=== PATIENT | male | born 1955 | race Two or more races ===

== ENCOUNTER → 2023-11-12 | Outpatient (CLI) | payer OTHER, MEDICAID ==
[2023-11-12 09:38] LABS: Urine Bacteria None Seen /hpf (None Seen)
[2023-11-12 10:09] LABS: Basophils # (auto) 0.1 10 ^3/uL (0-0.2); Eosinophils # (auto) 0.9 10 ^3/uL (0-0.8); Hematocrit 49.7 % (41.0-53.0); Hemoglobin 17.4 g/dL (13.5-17.5); Lymphocytes # (auto) 2.5 10 ^3/uL (0.4-5.4); Lymphocytes % (auto) 31.1 % (10.0-50.0); Mean Corpuscular Hemoglobin 32.4 pg (28.0-32.0); Mean Corpuscular Hgb Conc. 34.9 g/dL (32.0-36.0); Mean Corpuscular Volume 92.9 fL (80.0-100.0); Monocytes # (auto) 0.5 10 ^3/uL (0-1.3); Monocytes % (auto) 6.7 % (0.0-12.0); Neutrophils % (auto) 50.2 % (37.0-80.0); Platelet Count (auto) 212 10^3/uL (140-450); Red Blood Cells 5.35 10^6/uL (4.5-5.90); Red Cell Distribution Width 13.3 % (11.8-14.3)
[2023-11-12 10:44] LABS: Urine Blood Negative /uL (Negative); Urine Clarity Clear (Clear); Urine Color Light-Yellow (Yellow); Urine Protein, UAD Negative (Negative); Urine Specific Gravity 1.019 (1.001-1.035); Urine Urobilinogen Normal (Negative); Urine WBC <1 /hpf (0 - 3)
[2023-11-12 11:04] LABS: Alanine Aminotransferase 17 U/L (7-40); Albumin 4.6 g/dL (3.2-4.8); Alkaline Phosphatase 90 U/L (46-116); Anion Gap 5 (5-15); Aspartate Aminotransferase 15 U/L (13-40); BUN/Creatinine Ratio 13.6 (10.0-20.0); Blood Urea Nitrogen 11 mg/dL (9-23); Carbon Dioxide 29 mmol/L (20-30); Chloride 105 mmol/L (98-107); Cholesterol 221 mg/dL (< 200); Glucose 128 mg/dL (74-106); HDL Cholesterol 45 mg/dL (40-59); LDL Cholesterol 153 mg/dL (< 100); Potassium 4.5 mmol/L (3.5-5.1); Sodium 139 mmol/L (136-145); Triglycerides 115 mg/dL (< 150)
[2023-11-12 11:05] LABS: Bilirubin, Total 1.1 mg/dL (0.2-1.0); Total Protein 7.5 g/dL (5.7-8.2)
== END | disposition home or self-care (01) ==
LOC: LAB 09:29
PROVIDERS: ATTEND Internal Medicine
DX: Z00.01 Encounter for general adult medical examination with abnormal findings (principal); Z29.9 Encounter for prophylactic measures, unspecified; J45.20 Mild intermittent asthma, uncomplicated; E78.5 Hyperlipidemia, unspecified; E11.9 Type 2 diabetes mellitus without complications
CPT/HCPCS: 36415; 80053; 80061; 81001; 83036; 84439; 84443; 85025

== ENCOUNTER → 2023-12-26 | Outpatient (CLI) | payer OTHER, MEDICAID ==
[2023-12-26 09:09] LABS: Alanine Aminotransferase 16 U/L (7-40); Albumin 4.4 g/dL (3.2-4.8); Alkaline Phosphatase 90 U/L (46-116); Anion Gap 8 (5-15); Aspartate Aminotransferase 13 U/L (13-40); BUN/Creatinine Ratio 10.7 (10.0-20.0); Blood Urea Nitrogen 8 mg/dL (9-23); Calcium 9.7 mg/dL (8.7-10.4); Carbon Dioxide 28 mmol/L (20-31); Chloride 106 mmol/L (98-107); Glucose 135 mg/dL (74-106); Potassium 3.8 mmol/L (3.5-5.1); Sodium 142 mmol/L (136-145)
[2023-12-26 09:10] LABS: Total Protein 7.3 g/dL (5.7-8.2)
[2023-12-26 09:22] LABS: Creatinine, Urine 101.37 mg/dL (30.0-125.0)
== END | disposition home or self-care (01) ==
LOC: LAB 08:21
PROVIDERS: ATTEND Internal Medicine
DX: E11.69 Type 2 diabetes mellitus with other specified complication (principal)
CPT/HCPCS: 36415; 80053; 82043; 82570

== ENCOUNTER 2024-05-10 10:45 | Inpatient (IN) | payer OTHER, MEDICAID ==
[~2024-05-10] VITALS: Ht 175.3 cm; Wt 97.4 kg
[2024-05-10 10:50] VITALS: RESP 20
--- NOTE | 2024-05-10 11:16 | ED.PDOC ---
SOB-HPI HPI Comments This is a 69-year-old male who comes in with chief complaint of shortness for breath since last night. The patient was had a cough with some hemoptysis. Patient also states that he is having some chest tightness with his cough. All the symptoms started on . He does have a history of asthma. It was unknown if he took an inhaler or any other medications for his shortness a breath. He was able to ambulate into the emergency department's without significant difficulty. Chief Complaint: Shortness of Breath Time Seen by MD: 10:50 Primary Care Provider: none Reviewed notes: Nurses Notes, Medications, Allergies (No allergies to medications) Information Source: Patient Mode of Arrival: Ambulatory Severity: Moderate Timing: Days Duration: Since onset Context: At Rest PE Risk Factors: None History of: Asthma Prehospital treatment: None Modifying Factors: Nothing Associated Signs and Symptoms: Wheeze, Cough, Chest Pain Quality: Tightness If cough with SOB: Non-Productive Past Medical History PAST MEDICAL HISTORY: Arthritis, High Lipids Surgical History (Other): Bilateral knee surgery Family History Family History: Unknown Social History Smoker: Non-Smoker Alcohol: Occasionally Drugs: Denies Drug Use Lives In: Home Constitutional: denies: chills, diaphoresis, fatigue, fever, malaise, sweats, weakness, others EENTM: denies: blurred vision, double vision, ear bleeding, ear discharge, ear drainage, ear pain, ear ringing, eye pain, eye redness, hearing loss, mouth pain, mouth swelling, nasal discharge, nose bleeding, nose congestion, nose pain, photophobia, tearing, throat pain, throat swelling, voice changes, others Respiratory: reports: cough, shortness of breath, wheezing; denies: hemoptysis, orthopnea, SOB at rest, SOB with excertion, stridor, others Cardiovascular: reports: chest pain; denies: dizzy spells, diaphoresis, Dyspnea on exertion, edema, irregular heart beat, left arm pain, lightheadedness, palpitations, PND, syncope, others Gastrointestinal: denies: abdomen distended, abdominal pain, blood streaked bowels, constipated, diarrhea, dysphagia, difficulty swallowing, hematemesis, melena, nausea, poor appetite, poor fluid intake, rectal bleeding, rectal pain, vomiting, others Genitourinary: denies: burning, dysuria, flank pain, frequency, hematuria, incontinence, penile discharge, penile sore, pain, testicle pain, testicle swelling, urgency, others Neurological: denies: dizziness, fainting, headache, left sided numbness, left sided weakness, numbness, paresthesia, pre-existing deficit, right sided numbness, right sided weakness, seizure, speech problems, tingling, tremors, weakness, others Musculoskeletal: denies: back pain, gout, joint pain, joint swelling, muscle pain, muscle stiffness, neck pain, others Integumetry: denies: bruises, change in color, change in hair/nails, dryness, laceration, lesions, lumps, rash, wounds, others Allergic/Immunocompromised: denies: Difficulty Healing, Frequent Infections, Hives, Itching, others Hematologic/Lymphatic: denies: anemia, blood clots, easy bleeding, easy bruising, swollen glands, others Endocrine: denies: excessive hunger, excessive sweating, excessive thirst, excessive urination, flushing, intolerance to cold, intolerance to heat, unexplained weight gain, unexplained weight loss, others Psychiatric: denies: anxiety, bipolar disorder, depression, hopeless, panic disorder, schizophrenia, sleepless, suicidal, others Physical Exam General Appearance: Moderate Distress HEENT: Normal ENT Inspection, Pharynx Normal, TMs Normal Neck: Full Range of Motion, Non-Tender, Normal, Normal Inspection Respiratory: Chest Non-Tender, Decreased Breath Sounds, No Accessory Muscle Use, Respiratory Distress, Wheezing Cardiovascular: No Edema, No JVD, No Murmur, No Gallop, Normal Peripheral Pulses, Regular Rate/Rhythm Breast Exam: Deferred Gastrointestinal: No Organomegaly, Non Tender, No Pulsatile Mass, Normal Bowel Sounds, Soft Genitalia: Deferred Pelvic: Deferred Rectal: Deferred Extremities: No calf tenderness, Normal capillary refill, Normal inspection, Normal range of motion, Non-tender, No pedal edema Musculoskeletal : Apperance: Normal Neurologic: Alert, 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 Was a procedure done?: No Differential Dx Differential Diagnosis: Asthma, Bronchitis, CHF, COPD, Pneumonia X-Ray, Labs, Meds, VS Vital Signs Date Time Temp Pulse Resp B/P (MAP) Pulse Ox O2 Delivery O2 Flow Rate FiO2 05/10/24 12:02 18 95 Room Air* 0 21 05/10/24 10:57 99.3 95 16 166/93 (117) 96 99.3 05/10/24 10:57 19 96 Room Air* 0 21 05/10/24 10:50 20 Room Air* 0 21 Lab Test 05/10/24 11:20 Range/Units White Blood Count 8.4 4.4-10.8 10^3/uL Red Blood Count 5.07 4.5-5.90 10^6/uL Hemoglobin 16.0 13.5-17.5 g/dL Hematocrit 46.5 41.0-53.0 % Mean Corpuscular Volume 91.8 80.0-100.0 fL Mean Corpuscular Hemoglobin 31.5 28.0-32.0 pg Mean Corpuscular Hemoglobin Concent 34.3 32.0-36.0 g/dL Red Cell Distribution Width 13.0 11.8-14.3 % Platelet Count 305 140-450 10^3/uL Mean Platelet Volume 7.4 6.9-10.8 fL Neutrophils (%) (Auto) 65.4 37.0-80.0 % Lymphocytes (%) (Auto) 19.6 10.0-50.0 % Monocytes (%) (Auto) 6.7 0.0-12.0 % Eosinophils (%) (Auto) 7.3 H 0.0-7.0 % Basophils (%) (Auto) 1.0 0.0-2.0 % Neutrophils # (Auto) 5.5 1.6-8.6 10 ^3/uL Lymphocytes # (Auto) 1.6 0.4-5.4 10 ^3/uL Monocytes # (Auto) 0.6 0-1.3 10 ^3/uL Eosinophils # (Auto) 0.6 0-0.8 10 ^3/uL Basophils # (Auto) 0.1 0-0.2 10 ^3/uL Nucleated Red Blood Cells 0.2 % Sodium Level 140 136-145 mmol/L Potassium Level 3.8 3.5-5.1 mmol/L Chloride Level 106 98-107 mmol/L Carbon Dioxide Level 26 20-31 mmol/L Anion Gap 8 5-15 Blood Urea Nitrogen 10 9-23 mg/dL Creatinine 0.76 0.700-1.30 mg/dL Glomerular Filtration Rate Calc 99 >90 mL/min BUN/Creatinine Ratio 13.2 10.0-20.0 Serum Glucose 116 H 74-106 mg/dL Calcium Level 9.8 8.7-10.4 mg/dL Current Medications Medications (Trade) Dose Ordered Sig/Martinez Route Start Time Stop Time Status Last Admin Methylprednisolone Sodium Succinate (Solu Medrol) 125 mg ONCE ONCE IV 05/10/24 11:00 05/10/24 11:01 DC 05/10/24 11:46 Ipratropium [place] (Atrovent Medneb) [address] [facility] 05/10/24 11:00 05/10/24 11:01 DC 05/10/24 12:01 Albuterol (Ventolin Medneb) [address] [facility] 05/10/24 11:00 05/10/24 11:01 DC 05/10/24 12:02 Chest x-ray shows:EXAM: XY CHEST TWO VIEWS ROUTINE IMPRESSION: Diffuse interstitial opacities in the right lung suggestive of atypical infection or pulmonary edema. The patient was placed on a continuous breathing treatment albuterol and Atrovent. The patient was given Solu-Medrol 125 mg IV push The patient had a CBC and chemistry panel which is within normal limits. The patient did have some mild improvement The patient was still be admitted with a diagnosis of asthma exacerbation Images Reviewed?: Images reviewed and evaluated by me Time of 1ST Reevaluation: 11:15 Reevaluation 1ST: Improved Patient Education/Counseling: Diagnosis, Treatment, Prognosis Family Education/Counseling: No Family Present Departure 1 Departure Time of Disposition: 13:57 Impression: Primary Impression: Exacerbation of asthma Qualified Codes: J45.41 - Moderate persistent asthma with (acute) exacerbation Additional Impression: Shortness of breath Disposition: ADMITTED INPATIENT Admit to: [facility] Condition: Fair Critical Care Note Critical Care Time?: Yes (45 min-critical care time only) Stability Stability form required: Yes Unstable for transfer: Telemetry monitoring (Telemetry monitoring required), ED Physician Assesment (Clinical assesment) Heart Score Heart Score: Heart Score Response (Comments) Value History N/A 0 EKG N/A 0 Age N/A 0 Risk Factors N/A 0 Troponin N/A 0 Total 0 I personally scribed for NOY TREJO MD ([email or web address]) on 05/10/24 at 12:19. Electronically submitted by Dede Brasher ([facility]). NOY TREJO MD May 10, 2024 11:16
--- NOTE | 2024-05-10 11:20 | DVH ---
EXAM: XY CHEST TWO VIEWS ROUTINE CLINICAL HISTORY: sob COMPARISON: None TECHNIQUE: Frontal and lateral view of the chest was obtained FINDINGS: Lines and Tubes: None Lungs: Diffuse interstitial opacities in the right lung. Pleura: No effusion. No pneumothorax. Cardiomediastinal contours: Unremarkable Bones: No acute osseous abnormality. IMPRESSION: Diffuse interstitial opacities in the right lung suggestive of atypical infection or pulmonary edema.
[2024-05-10] MEDS: methylPREDNISolone SOD SUCC 125 MG/2 ML VL IV ONE (11:46)
[2024-05-10 11:53] LABS: Basophils # (auto) 0.1 10 ^3/uL (0-0.2); Eosinophils # (auto) 0.6 10 ^3/uL (0-0.8); Eosinophils % (auto) 7.3 % (0.0-7.0); Hematocrit 46.5 % (41.0-53.0); Lymphocytes # (auto) 1.6 10 ^3/uL (0.4-5.4); Lymphocytes % (auto) 19.6 % (10.0-50.0); Mean Corpuscular Hemoglobin 31.5 pg (28.0-32.0); Mean Corpuscular Hgb Conc. 34.3 g/dL (32.0-36.0); Mean Corpuscular Volume 91.8 fL (80.0-100.0); Monocytes # (auto) 0.6 10 ^3/uL (0-1.3); Monocytes % (auto) 6.7 % (0.0-12.0); Neutrophils # (auto) 5.5 10 ^3/uL (1.6-8.6); Neutrophils % (auto) 65.4 % (37.0-80.0); Nucleated Red Blood Cells % 0.2 %; Platelet Count (auto) 305 10^3/uL (140-450); Red Blood Cells 5.07 10^6/uL (4.5-5.90); White Blood Cell 8.4 10^3/uL (4.4-10.8)
[2024-05-10 11:59] LABS: Chloride 106 mmol/L (98-107); Potassium 3.8 mmol/L (3.5-5.1); Sodium 140 mmol/L (136-145)
[2024-05-10 12:00] LABS: Anion Gap 8 (5-15); Calcium 9.8 mg/dL (8.7-10.4); Carbon Dioxide 26 mmol/L (20-31)
[2024-05-10] MEDS: IPRATROPIUM BROM 0.5 MG/2.5ML INH SOL HHN ONE (12:01)
[2024-05-10] MEDS: ALBUTEROL SULF 2.5 MG/0.5ML(0.5%) NEB SOLN HHN ONE (12:02)
[2024-05-10 12:05] LABS: Glucose 116 mg/dL (74-106)
[2024-05-10 12:26] LABS: BUN/Creatinine Ratio 13.2 (10.0-20.0); Blood Urea Nitrogen 10 mg/dL (9-23)
[2024-05-10] MEDS ORDERED: ACETAMINOPHEN 325 MG TAB PO PRN (16:00)
[2024-05-10] MEDS ORDERED: ONDANSETRON HCL 4 MG/2 ML VIAL IV PRN (16:00)
[2024-05-10] MEDS ORDERED: HYDROcodone-ACET 5/325MG TAB PO PRN (16:00)
--- NOTE | 2024-05-10 16:01 | DVHHP2 ---
Admitting Diagnosis: Shortness of breaths History of Present Illness This is a 69-year-old male who comes in with chief complaint of shortness for breath since last night. The patient was had a cough with some hemoptysis. Patient also states that he is having some chest tightness with his cough. All the symptoms started on . He does have a history of asthma. It was unknown if he took an inhaler or any other medications for his shortness a breath. He was able to ambulate into the emergency department's without significant difficulty. Past Medical History PAST MEDICAL HISTORY: Arthritis, High Lipids Surgical History (Other): Bilateral knee surgery Family History Family History: Unknown Social History Smoker: Non-Smoker Alcohol: Occasionally Drugs: Denies Drug Use Lives In: Home Allergies: Coded Allergies: NO KNOWN ALLERGIES (Unverified , 05/10/24) Vital Signs Vital Signs Date Time Temp Pulse Resp B/P (MAP) Pulse Ox O2 Delivery O2 Flow Rate FiO2 05/10/24 12:02 18 95 Room Air* 0 21 05/10/24 10:57 99.3 95 166/93 (117) 99.3 Physical Exam Generally 69 years old male, overweight, sitting on chair. Mild distress HEENT-atraumatic normocephalic Heart-regular rate and rhythm Lungs bilateral wheezing Abdomen soft nontender nondistended nondistended Musculoskeletal-no edema cyanosis Neuro-AO x3, no focal deficits Results Labs Test 05/10/24 11:20 Range/Units White Blood Count 8.4 4.4-10.8 10^3/uL Red Blood Count 5.07 4.5-5.90 10^6/uL Hemoglobin 16.0 13.5-17.5 g/dL Hematocrit 46.5 41.0-53.0 % Mean Corpuscular Volume 91.8 80.0-100.0 fL Mean Corpuscular Hemoglobin 31.5 28.0-32.0 pg Mean Corpuscular Hemoglobin Concent 34.3 32.0-36.0 g/dL Red Cell Distribution Width 13.0 11.8-14.3 % Platelet Count 305 140-450 10^3/uL Mean Platelet Volume 7.4 6.9-10.8 fL Neutrophils (%) (Auto) 65.4 37.0-80.0 % Lymphocytes (%) (Auto) 19.6 10.0-50.0 % Monocytes (%) (Auto) 6.7 0.0-12.0 % Eosinophils (%) (Auto) 7.3 H 0.0-7.0 % Basophils (%) (Auto) 1.0 0.0-2.0 % Neutrophils # (Auto) 5.5 1.6-8.6 10 ^3/uL Lymphocytes # (Auto) 1.6 0.4-5.4 10 ^3/uL Monocytes # (Auto) 0.6 0-1.3 10 ^3/uL Eosinophils # (Auto) 0.6 0-0.8 10 ^3/uL Basophils # (Auto) 0.1 0-0.2 10 ^3/uL Nucleated Red Blood Cells 0.2 % Sodium Level 140 136-145 mmol/L Potassium Level 3.8 3.5-5.1 mmol/L Chloride Level 106 98-107 mmol/L Carbon Dioxide Level 26 20-31 mmol/L Anion Gap 8 5-15 Blood Urea Nitrogen 10 9-23 mg/dL Creatinine 0.76 0.700-1.30 mg/dL Glomerular Filtration Rate Calc 99 >90 mL/min BUN/Creatinine Ratio 13.2 10.0-20.0 Serum Glucose 116 H 74-106 mg/dL Calcium Level 9.8 8.7-10.4 mg/dL Primary Diagnosis Acute asthma exacerbation Plan Solu-Medrol 25 mg IV in ED Continue Solu-Medrol 60 mg q.6 Albuterol and ipratropium nebulizer q.6 Oxygen saturation goal greater than 92% Monitor for wheezing Monitor respiratory status Bowel regimen Antiemetic Diet Lovenox for DVT prophylaxis PPI for GI prophylaxis Cardiac diet Plan discussed with: Patient Problems List: (1) Shortness of breath Status: Acute (2) Exacerbation of asthma Status: Acute Date of Service: May 10, 2024 Billing Provider: CASTILLO ORTIZ MD Common Visit Codes: [id number] INP/OBS CARE (MOD) CASTILLO ORTIZ MD May 10, 2024 16:01
[2024-05-10 16:34] VITALS: BP 166/93; PULSE 95; RESP 18; TEMP 99.3; O2SAT 95
[2024-05-10 18:50] VITALS: PULSE 95; PULSE 98; RESP 20; O2SAT 95; O2SAT 99
[2024-05-10] MEDS: IPRATROPIUM BROM 0.5 MG/2.5ML INH SOL NEB SCH (20:38)
[2024-05-10] MEDS: ALBUTEROL SULF 2.5 MG/0.5ML(0.5%) NEB SOLN NEB SCH (20:39)
[2024-05-10] MEDS: SODIUM CHLOR 0.9% PF (SALINE LOCK) 10ML VIAL/SYR IV SCH (21:58)
[2024-05-10] MEDS: methylPREDNISolone SOD SUCC 125 MG/2 ML VL IV SCH (23:57)
[2024-05-11] VITALS (18 sets, daily range): BP systolic 102–144; BP diastolic 53–86; PULSE 72–99; RESP 14–20; TEMP 97.4–97.9; O2SAT 91–100
[2024-05-11] MEDS ORDERED: ALB5IS NEB (03:59)
[2024-05-11] MEDS: DOCUSATE SOD 100 MG CAP PO PRN (05:39)
[2024-05-11 06:19] LABS: Basophils # (auto) 0 10 ^3/uL (0-0.2); Basophils % (auto) 0.1 % (0.0-2.0); Eosinophils # (auto) 0 10 ^3/uL (0-0.8); Hematocrit 43.6 % (41.0-53.0); Hemoglobin 14.7 g/dL (13.5-17.5); Lymphocytes # (auto) 0.7 10 ^3/uL (0.4-5.4); Lymphocytes % (auto) 7.7 % (10.0-50.0); Mean Corpuscular Hemoglobin 30.6 pg (28.0-32.0); Mean Corpuscular Hgb Conc. 33.7 g/dL (32.0-36.0); Mean Corpuscular Volume 90.8 fL (80.0-100.0); Monocytes # (auto) 0.1 10 ^3/uL (0-1.3); Monocytes % (auto) 1.6 % (0.0-12.0); Neutrophils # (auto) 7.9 10 ^3/uL (1.6-8.6); Neutrophils % (auto) 90.6 % (37.0-80.0); Platelet Count (auto) 301 10^3/uL (140-450); Red Blood Cells 4.81 10^6/uL (4.5-5.90); Red Cell Distribution Width 12.5 % (11.8-14.3); White Blood Cell 8.7 10^3/uL (4.4-10.8)
[2024-05-11 06:41] LABS: Alanine Aminotransferase 24 U/L (7-40); Albumin 4.3 g/dL (3.2-4.8); Alkaline Phosphatase 85 U/L (46-116); Anion Gap 10 (5-15); BUN/Creatinine Ratio 18.6 (10.0-20.0); Bilirubin, Total 0.6 mg/dL (0.2-1.0); Blood Urea Nitrogen 13 mg/dL (9-23); Calcium 9.8 mg/dL (8.7-10.4); Carbon Dioxide 23 mmol/L (20-31); Chloride 106 mmol/L (98-107); Potassium 3.9 mmol/L (3.5-5.1); Sodium 139 mmol/L (136-145); Total Protein 7.2 g/dL (5.7-8.2)
[2024-05-11 06:46] LABS: Aspartate Aminotransferase 12 U/L (13-40); Glucose 198 mg/dL (74-106)
[2024-05-11] MEDS: ENOXAPARIN SOD 40 MG/0.4 ML SYRINGE SC SCH (09:06)
[2024-05-11] MEDS: AZITHROMYCIN 500MG/ 250ML 250 ML IV SCH (11:42)
[2024-05-11 12:03] LABS: Rapid Influenza A Negative (Negative); Rapid Influenza B Negative (Negative)
[2024-05-11 12:07] LABS: COVID19 ANTIGEN SOFIA FIA NEGATIVE (NEGATIVE)
[2024-05-11] MEDS: cefTRIAXone 1GM/50ML D5W 50 ML IV SCH (12:51)
--- NOTE | 2024-05-11 13:00 | DVHPN2 ---
Subjective Patient reports having generalized weakness and cough Reviewed: Care Plan, H&P, Labs, Medications Changes from previous H/P or p: No Changes General: Per HPI Objective Vitals Vital Signs Date Time Temp Pulse Resp B/P (MAP) Pulse Ox O2 Delivery O2 Flow Rate FiO2 05/11/24 11:49 96 20 98 05/11/24 09:00 97.8 139/64 (89) 97.8 05/11/24 08:01 Room Air* 0 21 Intake/Output Intake and Output 05/11/24 07:00 Intake Total 100 ml Balance 100 ml Intake Oral 100 ml General Appearance: Alert, Oriented X3, Cooperative, mild distress HEENT: Atraumatic, PERRLA Lungs: Clear to auscultation, Normal air movement Cardiovascular: Normal S1, Normal S2 Abdomen: Normal bowel sounds, Soft Musculoskeletal: Normal sensory function, Normal motor function Skin: Dry, Intact Psych/Mental Status: Mental status NL, Mood NL Medications Current Medications Medications Dose Ordered Sig/Martinez Route Start Time Stop Time Status Last Admin Dose Admin Albuterol 2.5 mg Q6H NEB 05/10/24 18:00 05/11/24 11:41 2.5 MG Ipratropium [place] 0.5 mg Q6H NEB 05/10/24 18:00 05/11/24 11:41 0.5 MG Sodium Chloride 10 ml Q8HR IV 05/10/24 22:00 05/11/24 05:39 10 ML Docusate Sodium 100 mg BIDPRN PRN PO 05/10/24 16:00 05/11/24 05:39 100 MG Acetaminophen 650 mg Q6HP PRN PO 05/10/24 16:00 Acetaminophen/ Hydrocodone Bitart 1 tab Q4HP PRN PO 05/10/24 16:00 Ondansetron HCl 4 mg Q4HP PRN IV 05/10/24 16:00 Enoxaparin Sodium 40 mg DAILY SC 05/11/24 10:00 Methylprednisolone Sodium Succinate 40 mg BID IV 05/11/24 22:00 Azithromycin 250 ml @ 125 mls/hr DAILY IV 05/11/24 11:00 05/11/24 11:42 125 MLS/HR Ceftriaxone Sodium 50 ml @ 100 mls/hr DAILY@09 IV 05/11/24 11:00 05/11/24 12:51 100 MLS/HR Laboratory Results Laboratory Tests 05/11/24 05:50 Chemistry Test 05/11/24 05:50 Albumin 4.3 g/dL (3.2-4.8) Calcium Level 9.8 mg/dL (8.7-10.4) Total Protein 7.2 g/dL (5.7-8.2) LFT Test 05/11/24 05:50 Alanine Aminotransferase (ALT) 24 U/L (7-40) Alkaline Phosphatase 85 U/L (46-116) Aspartate Amino Transferase (AST) 12 U/L (13-40) L Total Bilirubin 0.6 mg/dL (0.2-1.0) Labs and/or images reviewed: Labs reviewed by me, Image(s) reviewed by me Assessment/Plan Assessment/Plan Impression: -community-acquired pneumonia, probable Gram-positive/Gram-negative etiology -obesity -asthma -dyslipidemia -osteoarthritis Plan: -patient with right lower lobe pneumonia. Start antibiotic therapy with Rocephin and azithromycin -check influenza and COVID-19 swab -continue bronchodilators -decrease IV Solu-Medrol -repeat labs chest x-ray in a.m. Total time spent with patient discussing and formulating plan of care: 35 minutes. This medical document was created using an electronic medical record system with [employer] computerized dictation system. Although this document has been carefully reviewed, there may still be some phonetic and typographical errors. These areas are purely typographical due to imperfections of the software programs, and do not reflect any compromise in the patient's medical care. Plan discussed with: Patient, Other (RN) My Orders Orders - ANASTASIYA REICH NP Procedure Category Date Status Time Azithromycin 500mg/ PHA 05/11/24 In Process 250ml (Zithromax 50 11:00 Ceftriaxone 1gm/50ml PHA 05/11/24 In Process D5w (Rocephin) 11:00 Methylprednisolone PHA 05/11/24 In Process Sod Succ (Solu Medrol 22:00 Date of Service: May 11, 2024 Billing Provider: ANASTASIYA REICH NP Common Visit Codes: [id number] INP/OBS CARE(HIGH) ANASTASIYA REICH NP May 11, 2024 13:00
[2024-05-11] MEDS: methylPREDNISolone SOD SUCC 40 MG/ML VL IV SCH (21:53)
[2024-05-12] VITALS (16 sets, daily range): BP systolic 107–128; BP diastolic 69–75; PULSE 74–101; RESP 16–18; TEMP 97.9–98.8; O2SAT 93–100
[2024-05-12 05:40] LABS: Basophils # (auto) 0 10 ^3/uL (0-0.2); Basophils % (auto) 0.1 % (0.0-2.0); Eosinophils # (auto) 0 10 ^3/uL (0-0.8); Hematocrit 41.6 % (41.0-53.0); Hemoglobin 14.3 g/dL (13.5-17.5); Lymphocytes # (auto) 0.7 10 ^3/uL (0.4-5.4); Lymphocytes % (auto) 5.3 % (10.0-50.0); Mean Corpuscular Hemoglobin 31.1 pg (28.0-32.0); Mean Corpuscular Hgb Conc. 34.5 g/dL (32.0-36.0); Mean Corpuscular Volume 90.2 fL (80.0-100.0); Monocytes # (auto) 0.2 10 ^3/uL (0-1.3); Monocytes % (auto) 1.9 % (0.0-12.0); Neutrophils % (auto) 92.7 % (37.0-80.0); Platelet Count (auto) 312 10^3/uL (140-450); Red Blood Cells 4.61 10^6/uL (4.5-5.90); Red Cell Distribution Width 12.8 % (11.8-14.3)
[2024-05-12 06:04] LABS: Alanine Aminotransferase 24 U/L (7-40); Albumin 4.1 g/dL (3.2-4.8); Alkaline Phosphatase 74 U/L (46-116); Anion Gap 7 (5-15); Aspartate Aminotransferase 14 U/L (13-40); BUN/Creatinine Ratio 19.7 (10.0-20.0); Blood Urea Nitrogen 14 mg/dL (9-23); Calcium 9.5 mg/dL (8.7-10.4); Carbon Dioxide 25 mmol/L (20-31); Chloride 106 mmol/L (98-107); Potassium 4.4 mmol/L (3.5-5.1); Sodium 138 mmol/L (136-145); Total Protein 6.8 g/dL (5.7-8.2)
[2024-05-12 06:05] LABS: Bilirubin, Total 0.4 mg/dL (0.2-1.0)
[2024-05-12 06:17] LABS: Glucose 244 mg/dL (74-106)
--- NOTE | 2024-05-12 11:30 | DVHPN2 ---
Subjective Improvement with dyspnea Reviewed: Care Plan, H&P, Labs, Medications Changes from previous H/P or p: Changes General: Per HPI Objective Vitals Vital Signs Date Time Temp Pulse Resp B/P (MAP) Pulse Ox O2 Delivery O2 Flow Rate FiO2 05/12/24 09:40 98.8 101 17 107/70 (82) 95 98.8 05/12/24 08:00 Room Air* 0 21 Intake/Output Intake and Output 05/12/24 07:00 Intake Total 2400 ml Balance 2400 ml Intake Oral 2100 ml IV Total 300 ml # Voids 2 General Appearance: Alert, Oriented X3, Cooperative, mild distress HEENT: Atraumatic, PERRLA Lungs: Clear to auscultation, Normal air movement Cardiovascular: Normal S1, Normal S2 Abdomen: Normal bowel sounds, Soft Musculoskeletal: Normal sensory function, Normal motor function Skin: Dry, Intact Psych/Mental Status: Mental status NL, Mood NL Medications Current Medications Medications Dose Ordered Sig/Martinez Route Start Time Stop Time Status Last Admin Dose Admin Albuterol 2.5 mg Q6H NEB 05/10/24 18:00 05/12/24 06:45 2.5 MG Ipratropium [place] 0.5 mg Q6H NEB 05/10/24 18:00 05/12/24 06:45 0.5 MG Sodium Chloride 10 ml Q8HR IV 05/10/24 22:00 05/12/24 05:33 10 ML Docusate Sodium 100 mg BIDPRN PRN PO 05/10/24 16:00 05/11/24 21:58 100 MG Acetaminophen 650 mg Q6HP PRN PO 05/10/24 16:00 Acetaminophen/ Hydrocodone Bitart 1 tab Q4HP PRN PO 05/10/24 16:00 Ondansetron HCl 4 mg Q4HP PRN IV 05/10/24 16:00 Enoxaparin Sodium 40 mg DAILY SC 05/11/24 10:00 Azithromycin 250 ml @ 125 mls/hr DAILY IV 05/11/24 11:00 05/12/24 09:54 125 MLS/HR Ceftriaxone Sodium 50 ml @ 100 mls/hr DAILY@09 IV 05/11/24 11:00 05/12/24 09:05 100 MLS/HR Laboratory Results Laboratory Tests 05/12/24 04:32 Chemistry Test 05/12/24 04:32 Albumin 4.1 g/dL (3.2-4.8) Calcium Level 9.5 mg/dL (8.7-10.4) Total Protein 6.8 g/dL (5.7-8.2) LFT Test 05/12/24 04:32 Alanine Aminotransferase (ALT) 24 U/L (7-40) Alkaline Phosphatase 74 U/L (46-116) Aspartate Amino Transferase (AST) 14 U/L (13-40) Total Bilirubin 0.4 mg/dL (0.2-1.0) Labs and/or images reviewed: Labs reviewed by me, Image(s) reviewed by me Assessment/Plan Assessment/Plan Impression: -community-acquired pneumonia, probable Gram-positive/Gram-negative etiology -obesity -asthma -dyslipidemia -osteoarthritis Plan: Events: No events overnight. White blood cell count increasing. Chest x-ray pending today. Continues to be on room air. Patient was agreeable to continue treatment given worsening leukocytosis -influenza and COVID-19 negative -taper off steroids -continue Rocephin and azithromycin -continue bronchodilators -repeat labs chest x-ray in a.m. Total time spent with patient discussing and formulating plan of care: 35 minutes. This medical document was created using an electronic medical record system with [employer] dictation system. Although this document has been carefully reviewed, there may still be some phonetic and typographical errors. These areas are purely typographical due to imperfections of the software programs, and do not reflect any compromise in the patient's medical care. Plan discussed with: Patient, Other (rn) My Orders Orders - ANASTASIYA REICH NP Procedure Category Date Status Time Chest Xray 1 View XY 05/12/24 Logged 10:44 Chest Portable XY 05/13/24 Transmitted 04:00 Date of Service: May 12, 2024 Billing Provider: ANASTASIYA REICH NP Common Visit Codes: [id number] INP/OBS CARE(HIGH) ANASTASIYA REICH NP May 12, 2024 11:30
--- NOTE | 2024-05-12 14:33 | DVH ---
CHEST RADIOGRAPH Indication: pna Technique: Single frontal view of the chest was obtained Comparison: 05/10/2024 FINDINGS: Lines and Tubes: None Lungs: No focal consolidation. Pleura: No effusion. No pneumothorax. Cardiomediastinal contours: Unremarkable Bones: No acute osseous abnormality. IMPRESSION: 1. No acute cardiopulmonary disease. 2. No significant change from 05/10/2024
[2024-05-13] VITALS (13 sets, daily range): BP systolic 98–132; BP diastolic 66–84; PULSE 70–97; RESP 16–19; TEMP 97.4–98.4; O2SAT 81–100
[2024-05-13 06:45] LABS: Basophils # (auto) 0 10 ^3/uL (0-0.2); Basophils % (auto) 0.5 % (0.0-2.0); Eosinophils # (auto) 0.1 10 ^3/uL (0-0.8); Eosinophils % (auto) 0.6 % (0.0-7.0); Hematocrit 42.2 % (41.0-53.0); Hemoglobin 14.8 g/dL (13.5-17.5); Lymphocytes # (auto) 2.6 10 ^3/uL (0.4-5.4); Lymphocytes % (auto) 28.2 % (10.0-50.0); Mean Corpuscular Hemoglobin 31.8 pg (28.0-32.0); Monocytes # (auto) 0.6 10 ^3/uL (0-1.3); Monocytes % (auto) 6.3 % (0.0-12.0); Neutrophils # (auto) 5.9 10 ^3/uL (1.6-8.6); Neutrophils % (auto) 64.4 % (37.0-80.0); Nucleated Red Blood Cells % 0.1 %; Platelet Count (auto) 285 10^3/uL (140-450); Red Blood Cells 4.63 10^6/uL (4.5-5.90); Red Cell Distribution Width 12.6 % (11.8-14.3); White Blood Cell 9.2 10^3/uL (4.4-10.8)
--- NOTE | 2024-05-13 06:54 | DVH ---
EXAM: XR Chest, 1 View CLINICAL INDICATION: pna TECHNIQUE: Frontal view of the chest. COMPARISON: XY CHEST XRAY 1 VIEW on DOS: 05/12/24 FINDINGS: LUNGS AND PLEURAL SPACES: Unremarkable. No consolidation. No pneumothorax. HEART: Unremarkable. No cardiomegaly. MEDIASTINUM: Unremarkable. Normal mediastinal contour. BONES/JOINTS: Unremarkable. No acute fracture. OTHER FINDINGS: . None. IMPRESSION: No acute cardiopulmonary process.
[2024-05-13 07:16] LABS: Alanine Aminotransferase 27 U/L (7-40); Alkaline Phosphatase 79 U/L (46-116); Anion Gap 7 (5-15); Blood Urea Nitrogen 10 mg/dL (9-23); Calcium 9.3 mg/dL (8.7-10.4); Carbon Dioxide 28 mmol/L (20-31); Chloride 105 mmol/L (98-107); Potassium 3.6 mmol/L (3.5-5.1); Sodium 140 mmol/L (136-145); Total Protein 6.7 g/dL (5.7-8.2)
[2024-05-13 07:17] LABS: BUN/Creatinine Ratio 13.5 (10.0-20.0); Bilirubin, Total 0.5 mg/dL (0.2-1.0)
[2024-05-13 07:24] LABS: Aspartate Aminotransferase 12 U/L (13-40); Glucose 158 mg/dL (74-106)
[2024-05-13] MEDS ORDERED: CEFD300C2 PO (11:47)
--- NOTE | 2024-05-13 11:53 | DVHDS2 ---
Discharge Summary Date of Admission May 10, 2024 at 15:51 Date of Discharge: May 13, 2024 Admitting Diagnosis Acute respiratory failure, asthma exacerbation Labs/Diagnostic Data: Laboratory Results Test 05/13/24 06:18 05/11/24 11:30 White Blood Count 9.2 10^3/uL (4.4-10.8) Red Blood Count 4.63 10^6/uL (4.5-5.90) Hemoglobin 14.8 g/dL (13.5-17.5) Hematocrit 42.2 % (41.0-53.0) Mean Corpuscular Volume 91.0 fL (80.0-100.0) Mean Corpuscular Hemoglobin 31.8 pg (28.0-32.0) Mean Corpuscular Hemoglobin Concent 35.0 g/dL (32.0-36.0) Red Cell Distribution Width 12.6 % (11.8-14.3) Platelet Count 285 10^3/uL (140-450) Mean Platelet Volume 7.4 fL (6.9-10.8) Neutrophils (%) (Auto) 64.4 % (37.0-80.0) Lymphocytes (%) (Auto) 28.2 % (10.0-50.0) Monocytes (%) (Auto) 6.3 % (0.0-12.0) Eosinophils (%) (Auto) 0.6 % (0.0-7.0) Basophils (%) (Auto) 0.5 % (0.0-2.0) Neutrophils # (Auto) 5.9 10 ^3/uL (1.6-8.6) Lymphocytes # (Auto) 2.6 10 ^3/uL (0.4-5.4) Monocytes # (Auto) 0.6 10 ^3/uL (0-1.3) Eosinophils # (Auto) 0.1 10 ^3/uL (0-0.8) Basophils # (Auto) 0 10 ^3/uL (0-0.2) Nucleated Red Blood Cells 0.1 % Sodium Level 140 mmol/L (136-145) Potassium Level 3.6 mmol/L (3.5-5.1) Chloride Level 105 mmol/L (98-107) Carbon Dioxide Level 28 mmol/L (20-31) Anion Gap 7 (5-15) Blood Urea Nitrogen 10 mg/dL (9-23) Creatinine 0.74 mg/dL (0.700-1.30) Glomerular Filtration Rate Calc 99 mL/min (>90) BUN/Creatinine Ratio 13.5 (10.0-20.0) Serum Glucose 158 mg/dL (74-106) Calcium Level 9.3 mg/dL (8.7-10.4) Total Bilirubin 0.5 mg/dL (0.2-1.0) Aspartate Amino Transferase (AST) 12 U/L (13-40) Alanine Aminotransferase (ALT) 27 U/L (7-40) Alkaline Phosphatase 79 U/L (46-116) Total Protein 6.7 g/dL (5.7-8.2) Albumin 4.0 g/dL (3.2-4.8) Influenza Type A Antigen Negative (Negative) Influenza Type B Antigen Negative (Negative) SARS-CoV-2 Antigen (Rapid) Negative (NEGATIVE) Other Laboratory Tests 05/13/24 06:18 Brief Hx & Hospital Course: History of Present Illness This is a 69-year-old male who comes in with chief complaint of shortness for breath since last night. The patient was had a cough with some hemoptysis. Patient also states that he is having some chest tightness with his cough. All the symptoms started on . He does have a history of asthma. It was unknown if he took an inhaler or any other medications for his shortness a breath. He was able to ambulate into the emergency department's without significant difficulty. Course of hospitalization: Chest x-ray was reviewed with noted atypical pneumonia. Patient had COVID-19 and influenza test formed which were negative. Patient was started on antibiotic therapy with Rocephin and azithromycin. Bronchodilators and IV steroids were continued. Patient was respiratory status improved. Patient x- ray has also been reviewed which shows resolution of pneumonia. Patient will be discharged home with continue antibiotic therapy with cefdinir 300 mg p.o. b.i.d. for additional five days. He was to continue all previous home medications. Patient was also instructed to follow up with his PCP in 1-2 weeks Physical examination General: Alert and Oriented x3. No acute distress. Well-nourished. Eyes: EOMI. Anicteric. HENT: Moist mucous membranes. Lungs: Clear to auscultation bilaterally. No accessory muscle use. Cardiovascular: Regular rate and rhythm. No murmur. No JVD. Abdomen: Soft, non-tender and non-distended. No palpable masses. Extremities: No edema. Non-tender. Skin: No rashes or lesions. Warm. Neurologic: No focal neurological deficits. CN II-XII grossly intact, but not individually tested. Psychiatric: Cooperative. Appropriate mood and affect. Total time spent with patient discussing and formulating plan of care: 35 minutes. This medical document was created using an electronic medical record system with [employer] dictation system. Although this document has been carefully reviewed, there may still be some phonetic and typographical errors. These areas are purely typographical due to imperfections of the software programs, and do not reflect any compromise in the patient's medical care. Condition at Discharge: Fair Final Diagnosis/Problems List Acute respiratory failure Secondary diagnosis: -community-acquired pneumonia, probable Gram-positive/Gram-negative etiology -obesity -asthma exacerbation -dyslipidemia -osteoarthritis -constipation Discharge Disposition: Home Discharge Instruct/Medications Diet: Regular Activity: No Restrictions, As Tolerated Follow Up/Referral: Follow up with PCP in 1-2 weeks Medications: Cefdinir 300 mg p.o. b.i.d. x5 days 36 Discharge Statement: "Patient was advised to return to the ER or call 911 if any headaches, dizziness, shortness of breath, chest pain, abdominal pain, bleeding, fevers, or worsening of medical condition. Patient was counseled about treatment plan, medications, possible side effects, patientverbalized understanding. All questions were answered to the best of my ability. This discharge took greater then 30 minutes in planning, reviewing documentation, counseling the patient, and discussing with other team members." ASSESSMENT ASSESSMENT Assessment Acute respiratory failure Date of Service: May 13, 2024 Billing Provider: ANASTASIYA REICH NP Common Visit Codes: 70200-XHL/OBS DISCH DAY >30min ANASTASIYA REICH NP May 13, 2024 11:53
[2024-05-13] MEDS: LACTULOSE 20Gm/30ML SOLN PO ONE (12:09)
[2024-05-13] MEDS: METOCLOPRAMIDE HCL 5MG/ml INJ 2ml VIAL IV ONE (12:09)
== END 2024-05-13 16:57 | disposition home or self-care (01) | DRG 177 ==
LOC: ER 10:45 → OVERFLOW 15:51 → EAST 05-11 03:19
PROVIDERS: ADMIT Nurse Practitioner Acute Care; ATTEND Nurse Practitioner Acute Care
DX: J15.69 Pneumonia due to other Gram-negative bacteria (principal); J96.00 Acute respiratory failure, unspecified whether with hypoxia or hypercapnia; J45.901 Unspecified asthma with (acute) exacerbation; R04.2 Hemoptysis; J15.9 Unspecified bacterial pneumonia; E66.9 Obesity, unspecified; E78.5 Hyperlipidemia, unspecified; M19.09 Primary osteoarthritis, other specified site; J45.909 Unspecified asthma, uncomplicated; Z20.822 Contact with and (suspected) exposure to COVID-19; K59.00 Constipation, unspecified; Z79.899 Other long term (current) drug therapy; Z68.31 Body mass index [BMI] 31.0-31.9, adult
CPT/HCPCS: 36415; 71045; 71046; 80048; 80053; 85025; 87426; 87804; 94640; 96374; 99291; G0378

== ENCOUNTER 2024-06-07 15:10 | Inpatient (IN) | payer OTHER, MEDICAID ==
[~2024-06-07] VITALS: Ht 162.6 cm; Wt 90.0 kg
[~2024-06-07 15:10] MED LIST: ALB5IS NEB; CEFD300C2 PO
--- NOTE | 2024-06-07 15:34 | ED.PDOC ---
History of Present Illness HPI Comments 69 y/o obese M, with a Hx of asthma, is BIBA for c/o shortness of breath, productive cough, and wheezing, today. Per EMS report, patient is a [place] speaker and called after having sudden and unprovoked onset of symptoms 2 hours ago and having no relief or improvement with his at-home albuterol breathing tr eatment use. He was noted to have been found on scene with expiratory wheezes and a respiratory rate in the 30's range, a SpO2 of 96%RA, and in sinus tachycardic rate. En route, patient was given 2x Albuterol and 1x Atrovent breathing treatment, with improvement. Patient denies any chest pain, fever, chills, or other associated symptoms or modifiers at this time. Time Seen by MD: 15:10 Primary Care Provider: none Reviewed Notes: Nurses Notes, Medications, Allergies Allergies: Coded Allergies: NO KNOWN ALLERGIES (Unverified , 05/10/24) Home Meds Active Scripts Cefdinir (Cefdinir) 300 Mg Cap, 1 CAP PO BID for 5 Days, #10 CAP Prov:ANASTASIYA REICH CRAFT ARTIST 05/13/24 Reported Medications Albuterol Sulfate (Ventolin) 2.5 Mg/0.5 Ml Nb, 1 VIAL NEB Q6HR, #120 VIAL 5 Refills 05/11/24 Information Source: Patient Mode of Arrival: Ambulatory Severity: Moderate Timing: Hours Duration: Since onset Prehospital treatment: 12 Lead EKG, Breathing Tx, District Administrator Past Medical History PAST MEDICAL HISTORY: Arthritis, Asthma, High Lipids Past Medical History (Other): obesity Surgical History (Other): bilateral knee surgeries Family History Family History: Unknown Social History Smoker: Non-Smoker Alcohol: Occasionally Drugs: Denies Drug Use Lives In: Home Constitutional: denies: chills, diaphoresis, fatigue, fever, malaise, sweats, weakness, others EENTM: denies: blurred vision, double vision, ear bleeding, ear discharge, ear drainage, ear pain, ear ringing, eye pain, eye redness, hearing loss, mouth pain, mouth swelling, nasal discharge, nose bleeding, nose congestion, nose pain, photophobia, tearing, throat pain, throat swelling, voice changes, others Respiratory: reports: cough, shortness of breath, wheezing; denies: hemoptysis, orthopnea, SOB at rest, SOB with excertion, stridor, others Cardiovascular: denies: chest pain, dizzy spells, diaphoresis, Dyspnea on exertion, edema, irregular heart beat, left arm pain, lightheadedness, palpitations, PND, syncope, others Gastrointestinal: denies: abdomen distended, abdominal pain, blood streaked bowels, constipated, diarrhea, dysphagia, difficulty swallowing, hematemesis, melena, nausea, poor appetite, poor fluid intake, rectal bleeding, rectal pain, vomiting, others Genitourinary: denies: burning, dysuria, flank pain, frequency, hematuria, incontinence, penile discharge, penile sore, pain, testicle pain, testicle swelling, urgency, others Neurological: denies: dizziness, fainting, headache, left sided numbness, left sided weakness, numbness, paresthesia, pre-existing deficit, right sided numbness, right sided weakness, seizure, speech problems, tingling, tremors, weakness, others Musculoskeletal: denies: back pain, gout, joint pain, joint swelling, muscle pain, muscle stiffness, neck pain, others Integumetry: denies: bruises, change in color, change in hair/nails, dryness, laceration, lesions, lumps, rash, wounds, others Allergic/Immunocompromised: denies: Difficulty Healing, Frequent Infections, Hives, Itching, others Hematologic/Lymphatic: denies: anemia, blood clots, easy bleeding, easy bruising, swollen glands, others Endocrine: denies: excessive hunger, excessive sweating, excessive thirst, excessive urination, flushing, intolerance to cold, intolerance to heat, unexplained weight gain, unexplained weight loss, others Psychiatric: denies: anxiety, bipolar disorder, depression, hopeless, panic disorder, schizophrenia, sleepless, suicidal, others All Other Systems: Reviewed and Negative Physical Exam General Appearance: Moderate Distress HEENT: Normal ENT Inspection, Pharynx Normal, TMs Normal Neck: Full Range of Motion, Non-Tender, Normal, Normal Inspection Respiratory: Accessory Muscle Use, Chest Non-Tender, No Accessory Muscle Use, Respiratory Distress, Wheezing Cardiovascular: No Edema, No JVD, No Murmur, No Gallop, Normal Peripheral Pulses, Regular Rate/Rhythm Breast Exam: Deferred Gastrointestinal: No Organomegaly, Non Tender, No Pulsatile Mass, Normal Bowel Sounds, Soft Genitalia: Deferred Pelvic: Deferred Rectal: Deferred Extremities: No calf tenderness, Normal capillary refill, Normal inspection, Normal range of motion, Non-tender, No pedal edema Musculoskeletal : Apperance: Normal Neurologic: Alert, cargo service supervisor II-XII nml as Tested, No Motor Deficits, Normal Affect, Normal Mood, No Sensory Deficits Cerebellar Function: Normal Reflexes: Normal Skin: Dry, Normal Color, Warm Lymphatic: No Adenopathy Was a procedure done? Was a procedure done?: No Differential Dx Considerations may include: asthma exacerbation, URI, PNA, viral syndrome, MD, PE, among others X-Ray, Labs, Meds, VS Vital Signs Date Time Temp Pulse Resp B/P (MAP) Pulse Ox O2 Delivery O2 Flow Rate FiO2 06/07/24 16:09 19 94 Room Air* 0 21 06/07/24 15:26 124 06/07/24 15:10 98.7 118 26 138/76 (96) 97 98.7 Lab Test 06/07/24 15:49 Range/Units White Blood Count 17.3 H 4.4-10.8 10^3/uL Red Blood Count 5.13 4.5-5.90 10^6/uL Hemoglobin 15.4 13.5-17.5 g/dL Hematocrit 47.6 41.0-53.0 % Mean Corpuscular Volume 92.8 80.0-100.0 fL Mean Corpuscular Hemoglobin 30.1 28.0-32.0 pg Mean Corpuscular Hemoglobin Concent 32.5 32.0-36.0 g/dL Red Cell Distribution Width 13.7 11.8-14.3 % Platelet Count 203 140-450 10^3/uL Mean Platelet Volume 7.3 6.9-10.8 fL Neutrophils (%) (Auto) 85.3 H 37.0-80.0 % Lymphocytes (%) (Auto) 7.4 L 10.0-50.0 % Monocytes (%) (Auto) 5.6 0.0-12.0 % Eosinophils (%) (Auto) 1.4 0.0-7.0 % Basophils (%) (Auto) 0.3 0.0-2.0 % Neutrophils # (Auto) 14.8 H 1.6-8.6 10 ^3/uL Lymphocytes # (Auto) 1.3 0.4-5.4 10 ^3/uL Monocytes # (Auto) 1.0 0-1.3 10 ^3/uL Eosinophils # (Auto) 0.2 0-0.8 10 ^3/uL Basophils # (Auto) 0.1 0-0.2 10 ^3/uL Nucleated Red Blood Cells 0.1 % Sodium Level 138 136-145 mmol/L Potassium Level 3.5 3.5-5.1 mmol/L Chloride Level 103 98-107 mmol/L Carbon Dioxide Level 25 20-31 mmol/L Anion Gap 10 5-15 Blood Urea Nitrogen 9 9-23 mg/dL Creatinine 0.78 0.700-1.30 mg/dL Glomerular Filtration Rate Calc 98 >90 mL/min BUN/Creatinine Ratio 11.5 10.0-20.0 Serum Glucose 175 H 74-106 mg/dL Calcium Level 9.3 8.7-10.4 mg/dL Current Medications Medications (Trade) Dose Ordered Sig/Martinez Route Start Time Stop Time Status Last Admin Methylprednisolone Sodium Succinate (Solu Medrol) 125 mg ONCE ONCE IV 06/07/24 15:15 06/07/24 15:16 DC 06/07/24 17:04 Ipratropium [place] (Atrovent Medneb) 1 mg ONCE ONCE N 06/07/24 15:15 06/07/24 15:16 DC 06/07/24 16:10 Albuterol (Ventolin Medneb) 10 mg ONCE ONCE N 06/07/24 15:15 06/07/24 15:16 DC 06/07/24 16:09 The chest x-ray shows: Impression: The chest x-ray is negative at this time The patient was given Solu-Medrol 125 mg IV push The patient was given a continuous treatment of albuterol and Atrovent. The CBC shows an elevated white blood cell count of 17.3 The chemistry panel is within normal limits At this time, the patient is being admitted to the hospitalist Images Reviewed?: Images reviewed and evaluated by me Time of 1ST Reevaluation: 15:40 Reevaluation 1ST: Unchanged Time of 2ND Reevaluation: 17:28 Reevaluation 2ND: Improved Patient Education/Counseling: Diagnosis, Treatment, Prognosis Family Education/Counseling: No Family Present Departure 1 Departure Time of Disposition: 17:28 Impression: Primary Impression: Status asthmaticus Qualified Codes: J45.42 - Moderate persistent asthma with status asthmaticus Disposition: ADMITTED INPATIENT Admit to: Tele Condition: Fair Critical Care Note Critical Care Time?: No Stability Stability form required: Yes Unstable for transfer: Telemetry monitoring (Telemetry monitoring required), ED Physician Assesment (Clinical assesment) Heart Score Heart Score: Heart Score Response (Comments) Value History N/A 0 EKG N/A 0 Age N/A 0 Risk Factors N/A 0 Troponin N/A 0 Total 0 I personally scribed for NOY TREJO MD ([email or web address]) on 06/07/24 at 15:34. Electronically submitted by Zack Wilson ([email or web address]). NOY TREJO MD Jun 07, 2024 15:34
[2024-06-07] MEDS: ALBUTEROL SULF 2.5 MG/0.5ML(0.5%) NEB SOLN HHN ONE (16:09)
[2024-06-07] MEDS: IPRATROPIUM BROM 0.5 MG/2.5ML INH SOL HHN ONE (16:10)
[2024-06-07 16:30] LABS: Basophils # (auto) 0.1 10 ^3/uL (0-0.2); Basophils % (auto) 0.3 % (0.0-2.0); Eosinophils # (auto) 0.2 10 ^3/uL (0-0.8); Eosinophils % (auto) 1.4 % (0.0-7.0); Hematocrit 47.6 % (41.0-53.0); Hemoglobin 15.4 g/dL (13.5-17.5); Lymphocytes # (auto) 1.3 10 ^3/uL (0.4-5.4); Lymphocytes % (auto) 7.4 % (10.0-50.0); Mean Corpuscular Hemoglobin 30.1 pg (28.0-32.0); Mean Corpuscular Hgb Conc. 32.5 g/dL (32.0-36.0); Mean Corpuscular Volume 92.8 fL (80.0-100.0); Monocytes % (auto) 5.6 % (0.0-12.0); Neutrophils # (auto) 14.8 10 ^3/uL (1.6-8.6); Neutrophils % (auto) 85.3 % (37.0-80.0); Nucleated Red Blood Cells % 0.1 %; Platelet Count (auto) 203 10^3/uL (140-450); Red Blood Cells 5.13 10^6/uL (4.5-5.90); Red Cell Distribution Width 13.7 % (11.8-14.3); White Blood Cell 17.3 10^3/uL (4.4-10.8)
[2024-06-07 16:39] LABS: Chloride 103 mmol/L (98-107); Potassium 3.5 mmol/L (3.5-5.1); Sodium 138 mmol/L (136-145)
[2024-06-07 16:40] LABS: Anion Gap 10 (5-15); Carbon Dioxide 25 mmol/L (20-31)
[2024-06-07 16:41] LABS: Calcium 9.3 mg/dL (8.7-10.4)
[2024-06-07 16:45] LABS: BUN/Creatinine Ratio 11.5 (10.0-20.0); Blood Urea Nitrogen 9 mg/dL (9-23)
[2024-06-07 16:46] LABS: Glucose 175 mg/dL (74-106)
[2024-06-07] MEDS: methylPREDNISolone SOD SUCC 125 MG/2 ML VL IV ONE (17:04)
--- NOTE | 2024-06-07 17:04 | DVH ---
CHEST RADIOGRAPH Indication: sob Technique: Single frontal view of the chest was obtained Comparison: XY CHEST PORTABLE on DOS: 05/13/24, XY CHEST XRAY 1 VIEW on DOS: 05/12/24 FINDINGS: Lines and Tubes: None Lungs: No focal consolidation. Pleura: No effusion. No pneumothorax. Cardiomediastinal contours: Unremarkable Bones: No acute osseous abnormality. IMPRESSION: No acute cardiopulmonary disease.
[2024-06-07] MEDS ORDERED: HYDROcodone-ACET 5/325MG TAB PO PRN (22:30)
[2024-06-07] MEDS ORDERED: ACETAMINOPHEN 325 MG TAB PO PRN (22:30)
[2024-06-07] MEDS ORDERED: DOCUSATE SOD 100 MG CAP PO PRN (22:30)
[2024-06-07] MEDS ORDERED: ONDANSETRON HCL 4 MG/2 ML VIAL IV PRN (22:30)
--- NOTE | 2024-06-07 22:43 | DVHHP2 ---
Admitting Diagnosis: Shortness of breaths History of Present Illness 69 y/o obese M, with a Hx of asthma, is BIBA for c/o shortness of breath, productive cough, and wheezing, today. 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 He was noted to have been found on scene with expiratory wheezes and a respiratory rate in the 30's range, a SpO2 of 96%RA, and in sinus tachycardic rate. En route, patient was given 2x Albuterol and 1x Atrovent breathing treatment, with improvement. Patient denies any chest pain, fever, chills, or other associated symptoms or modifiers at this time. PAST MEDICAL HISTORY: Arthritis, Asthma, High Lipids Past Medical History (Other): obesity Surgical History (Other): bilateral knee surgeries Family History Family History: Unknown Social History Smoker: Non-Smoker Alcohol: Occasionally Drugs: Denies Drug Use Lives In: Home Patient Family History: Diabetes mellitus G8 MOTHER G8 FATHER Allergies: Coded Allergies: NO KNOWN ALLERGIES (Unverified , 05/10/24) Home Meds Active Scripts Cefdinir (Cefdinir) 300 Mg Cap, 1 CAP PO BID for 5 Days, #10 CAP Prov:ANASTASIYA REICH ASSISTANT TERMINAL MANAGER 05/13/24 Reported Medications Albuterol Sulfate (Ventolin) 2.5 Mg/0.5 Ml Nb, 1 VIAL NEB Q6HR, #120 VIAL 5 Refills 05/11/24 Current Medications Current Medications Medications (Trade) Dose Ordered Sig/Martinez Route PRN Reason Start Time Stop Time Status Last Admin Methylprednisolone Sodium Succinate (Solu Medrol) 62.5 mg Q6H IV 06/07/24 22:30 UNV Vital Signs Vital Signs Date Time Temp Pulse Resp B/P (MAP) Pulse Ox O2 Delivery O2 Flow Rate FiO2 06/07/24 16:09 19 94 Room Air* 0 21 06/07/24 15:26 124 06/07/24 15:10 98.7 138/76 (96) 98.7 Physical Exam Generally 69 years old male, sitting on chair. Mild distress HEENT-atraumatic normocephalic Heart-regular rate and rhythm Lungs decreased breath sounds throughout the lungs Abdomen soft nontender nondistended Musculoskeletal-no edema cyanosis Neuro-AO x3, no focal deficits Results Labs Test 06/07/24 15:49 Range/Units White Blood Count 17.3 H 4.4-10.8 10^3/uL Red Blood Count 5.13 4.5-5.90 10^6/uL Hemoglobin 15.4 13.5-17.5 g/dL Hematocrit 47.6 41.0-53.0 % Mean Corpuscular Volume 92.8 80.0-100.0 fL Mean Corpuscular Hemoglobin 30.1 28.0-32.0 pg Mean Corpuscular Hemoglobin Concent 32.5 32.0-36.0 g/dL Red Cell Distribution Width 13.7 11.8-14.3 % Platelet Count 203 140-450 10^3/uL Mean Platelet Volume 7.3 6.9-10.8 fL Neutrophils (%) (Auto) 85.3 H 37.0-80.0 % Lymphocytes (%) (Auto) 7.4 L 10.0-50.0 % Monocytes (%) (Auto) 5.6 0.0-12.0 % Eosinophils (%) (Auto) 1.4 0.0-7.0 % Basophils (%) (Auto) 0.3 0.0-2.0 % Neutrophils # (Auto) 14.8 H 1.6-8.6 10 ^3/uL Lymphocytes # (Auto) 1.3 0.4-5.4 10 ^3/uL Monocytes # (Auto) 1.0 0-1.3 10 ^3/uL Eosinophils # (Auto) 0.2 0-0.8 10 ^3/uL Basophils # (Auto) 0.1 0-0.2 10 ^3/uL Nucleated Red Blood Cells 0.1 % Sodium Level 138 136-145 mmol/L Potassium Level 3.5 3.5-5.1 mmol/L Chloride Level 103 98-107 mmol/L Carbon Dioxide Level 25 20-31 mmol/L Anion Gap 10 5-15 Blood Urea Nitrogen 9 9-23 mg/dL Creatinine 0.78 0.700-1.30 mg/dL Glomerular Filtration Rate Calc 98 >90 mL/min BUN/Creatinine Ratio 11.5 10.0-20.0 Serum Glucose 175 H 74-106 mg/dL Calcium Level 9.3 8.7-10.4 mg/dL Primary Diagnosis Asthma, COPD exacerbation Plan Decreased breath sounds throughout the lungs Elevated WBC possible reactive, steroids versus infection . Without fever chills or sputum production low suspicion Check pro, CRP Ceftriaxone azithromycin ordered continue to give if suspect infection Solu-Medrol 125 mg in ED Solu-Medrol 60 mg q.6 hours Albuterol and ipratropium q.6 hours standing Oxygen saturation goal greater than 92% Regular diet Full code heparin For DVT prophylaxis PPI for GI prophylaxis in view of steroids use Plan discussed with: Patient Problems List: (1) COPD exacerbation (2) Exacerbation of asthma Status: Acute (3) Shortness of breath Status: Acute Date of Service: Jun 07, 2024 Billing Provider: CASTILLO ORTIZ MD Common Visit Codes: [id number] INP/OBS CARE (HIGH) CASTILLO ORTIZ MD Jun 07, 2024 22:42
[2024-06-07 22:44] VITALS: BP 138/76; PULSE 118; RESP 19; TEMP 98.7; O2SAT 94
[2024-06-07] MEDS: ALBUTEROL SULF 2.5 MG/0.5ML(0.5%) NEB SOLN NEB SCH (23:37)
[2024-06-07] MEDS: IPRATROPIUM BROM 0.5 MG/2.5ML INH SOL NEB SCH (23:37)
[2024-06-08] MEDS: methylPREDNISolone SOD SUCC 125 MG/2 ML VL IV SCH (06:32)
[2024-06-08] MEDS: SODIUM CHLOR 0.9% PF (SALINE LOCK) 10ML VIAL/SYR IV SCH (06:32)
[2024-06-08 10:01] LABS: Alanine Aminotransferase 19 U/L (7-40); Albumin 4.8 g/dL (3.2-4.8); Alkaline Phosphatase 89 U/L (46-116); Anion Gap 8 (5-15); BUN/Creatinine Ratio 18.8 (10.0-20.0); Bilirubin, Total 1.2 mg/dL (0.2-1.0); Blood Urea Nitrogen 15 mg/dL (9-23); Calcium 10.3 mg/dL (8.7-10.4); Carbon Dioxide 27 mmol/L (20-31); Chloride 103 mmol/L (98-107); Potassium 4.3 mmol/L (3.5-5.1); Sodium 138 mmol/L (136-145); Total Protein 7.6 g/dL (5.7-8.2)
[2024-06-08 10:03] LABS: Basophils # (auto) 0 10 ^3/uL (0-0.2); Basophils % (auto) 0.1 % (0.0-2.0); Eosinophils # (auto) 0 10 ^3/uL (0-0.8); Hematocrit 47.3 % (41.0-53.0); Hemoglobin 15.8 g/dL (13.5-17.5); Lymphocytes # (auto) 0.9 10 ^3/uL (0.4-5.4); Lymphocytes % (auto) 8.4 % (10.0-50.0); Mean Corpuscular Hemoglobin 30.7 pg (28.0-32.0); Mean Corpuscular Hgb Conc. 33.5 g/dL (32.0-36.0); Mean Corpuscular Volume 91.6 fL (80.0-100.0); Monocytes # (auto) 0.3 10 ^3/uL (0-1.3); Monocytes % (auto) 2.4 % (0.0-12.0); Neutrophils # (auto) 9.7 10 ^3/uL (1.6-8.6); Neutrophils % (auto) 89.1 % (37.0-80.0); Nucleated Red Blood Cells % 0.1 %; Platelet Count (auto) 215 10^3/uL (140-450); Red Blood Cells 5.17 10^6/uL (4.5-5.90); Red Cell Distribution Width 13.8 % (11.8-14.3); White Blood Cell 10.9 10^3/uL (4.4-10.8)
[2024-06-08 10:05] LABS: Aspartate Aminotransferase 10 U/L (13-40); Glucose 235 mg/dL (74-106)
[2024-06-08] MEDS: PANTOPRAZOLE 40 MG/10 ML VIAL INJ IV SCH (10:24)
[2024-06-08] MEDS: cefTRIAXone 1GM/50ML D5W 50 ML IV SCH (10:25)
[2024-06-08 10:28] VITALS: PULSE 86; RESP 18; O2SAT 95
[2024-06-08] MEDS: AZITHROMYCIN 500MG/ 250ML 250 ML IV SCH (10:48)
[2024-06-08 12:01] LABS: COVID19 ANTIGEN SOFIA FIA NEGATIVE (NEGATIVE); Rapid Influenza A Negative (Negative); Rapid Influenza B Negative (Negative)
--- NOTE | 2024-06-08 15:19 | DVHPNRES ---
Progress Note Date Seen: Jun 08, 2024 Resident Creating Document: ROSANNE LESLIE RESIDENT Has the PT tested + for MRSA If YES, has PT been informed?: No Medical Necessity Reason Pt with a Central, PICC or Fol: No (rn) Subjective Review of Systems 69 y/o obese M, with a Hx of asthma, is BIBA for c/o shortness of breath, productive cough, and wheezing, today. Per EMS report, patient is a [place] speaker and called after having sudden and unprovoked onset of symptoms 2 hours ago and having no relief or improvement with his at-home albuterol breathing treatment use. He was noted to have been found on scene with expiratory wheezes and a respiratory rate in the 30's range, a SpO2 of 96%RA, and in sinus tachycardic rate. En route, patient was given 2x Albuterol and 1x Atrovent breathing treatment, with improvement. Patient denies any chest pain, fever, chills, or other associated symptoms or modifiers at this time. According to the patient 4 days ago: he had an exposure of tree leaves that exacerbated his symptoms PAST MEDICAL HISTORY: Arthritis, Asthma, High Lipids Past Medical History (Other): obesity Surgical History (Other): bilateral knee surgeries Family History Family History: Unknown Social History Smoker: ex smokes Alcohol: Occasionally Drugs: Denies Drug Use Lives In: Home Objective vital signs Vital Sign Date Time Temp Pulse Resp B/P (MAP) Pulse Ox O2 Delivery O2 Flow Rate FiO2 06/08/24 10:28 86 18 95 Room Air* 0 21 06/08/24 10:28 97.7 133/73 (93) 97.7 medications Current Medications Medications Dose Ordered Sig/Martinez Route Start Time Stop Time Status Last Admin Dose Admin Methylprednisolone Sodium Succinate 62.5 mg Q6H IV 06/07/24 22:30 06/08/24 10:48 62.5 MG Albuterol 2.5 mg Q6H NEB 06/07/24 22:30 06/07/24 23:37 2.5 MG Ipratropium [place] 0.5 mg Q6H NEB 06/07/24 22:30 06/07/24 23:37 0.5 MG Sodium Chloride 10 ml Q8HR IV 06/08/24 06:00 06/08/24 13:28 10 ML Docusate Sodium 100 mg BIDPRN PRN PO 06/07/24 22:30 Acetaminophen 650 mg Q6HP PRN PO 06/07/24 22:30 Acetaminophen/ Hydrocodone Bitart 1 tab Q4HP PRN PO 06/07/24 22:30 Ondansetron HCl 4 mg Q4HP PRN IV 06/07/24 22:30 Ceftriaxone Sodium 50 ml @ 100 mls/hr DAILY IV 06/08/24 10:00 06/08/24 10:25 100 MLS/HR Azithromycin 250 ml @ 125 mls/hr DAILY IV 06/08/24 10:00 06/08/24 10:48 125 MLS/HR Pantoprazole Sodium 40 mg DAILY IV 06/08/24 10:00 06/08/24 10:24 40 MG Examination Generally 69 years old male, sitting on chair. Mild distress HEENT-atraumatic normocephalic Heart-regular rate and rhythm Lungs decreased breath sounds throughout the lungs Abdomen soft nontender nondistended Musculoskeletal-no edema cyanosis Neuro-AO x3, no focal deficits laboratory and microbiology Laboratory Tests 06/08/24 09:28 Test 06/08/24 09:28 Range/Units Serum Glucose 235 H 74-106 mg/dL Problem List/Assessment/Plan Problem List/Assessment/Plan #COPD vs asthma exacerbation? #Possible pneumonia gram+/gram- #Hyperlipidemia #Obesity #Ostheoarthritis #Ex smoker Regular diet Ceftriaxone + Azithromycin Solumedrol q 6H Protonix IV Breathing treatments Patient ambulates Case discussed with Dr Guardado Plan discussed with: Patient, Other My Orders My Orders Orders - ROSANNE LESLIE RESIDENT Procedure Category Date Status Time Mrsa Screen JULIAN 06/08/24 In Process 09:10 Respiratory Culture JULIAN 06/08/24 Logged W/ Gs 09:10 Urinalysis LAB 06/08/24 Logged 13:10 Drug Screen LAB 06/08/24 Logged 13:10 Date of Service: Jun 08, 2024 Billing Provider: SAMI GUARDADO MD Common Visit Codes: [id number] INP/OBS CARE(HIGH) ROSANNE LESLIE RESIDENT Jun 08, 2024 15:19 SAMI GUARDADO MD Jun 09, 2024 22:26
[2024-06-08 21:00] VITALS: BP 117/72; PULSE 75; RESP 20; TEMP 97.7; O2SAT 96
[2024-06-08 21:45] VITALS: BP 117/72; PULSE 75; RESP 20; TEMP 97.7; O2SAT 96
[2024-06-08 22:03] VITALS: PULSE 75; RESP 20; O2SAT 96
[2024-06-08 23:26] VITALS: PULSE 72; RESP 16; O2SAT 96
[2024-06-08] MEDS: IPRATROPIUM BROM 0.5 MG/2.5ML INH SOL NEB SCH (23:26)
[2024-06-08] MEDS: ALBUTEROL SULF 2.5 MG/0.5ML(0.5%) NEB SOLN NEB SCH (23:26)
[2024-06-08 23:32] VITALS: PULSE 72; RESP 16; O2SAT 100
[2024-06-09] VITALS (8 sets, daily range): BP systolic 111–125; BP diastolic 61–70; PULSE 70–98; RESP 16–18; TEMP 97.6–98.1; O2SAT 91–100
[2024-06-09 08:32] LABS: Urine Bacteria None Seen /hpf (None Seen)
[2024-06-09 08:40] LABS: Urine Blood Negative /uL (Negative); Urine Clarity Clear (Clear); Urine Color Yellow (Yellow); Urine Protein, UAD Negative (Negative); Urine Specific Gravity 1.042 (1.001-1.035); Urine Squamous Epithelial Cell FEW /hpf (<5); Urine Urobilinogen 2 mg/dL (Negative); Urine WBC < 1 /HPF (0-3)
[2024-06-09 08:55] LABS: Amphetamine Screen, Urine Neg (NEGATIVE); Barbiturate Scree,Urine Neg (NEGATIVE); Benzodiazephine Screen, Urine Neg (NEGATIVE); Cannabinoid Screen, Urine Neg (NEGATIVE); Cocaine Screen, Urine Neg (NEGATIVE); Opiate Scree,Urine Neg (NEGATIVE); Phencyclidine Screen, Urine Neg (NEGATIVE)
--- NOTE | 2024-06-09 09:01 | ECG ---
[facility] Test Date: 2024-06-07 Test Time: 15:26:07 Pat Name: CAROLYN LOCKETT Department: ED Room: 0297 B Gender: M Learning Officer: ADOLFO : 1955 Requested By: NOY TREJO Order Number: [id number] Reading MD: Stuart Hicks Measurements Intervals [place] Rate: 124 P: 67 AL: 151 QRS: -58 QRSD: 104 T: 32 QT: 310 QTc: 446 Interpretive Statements Sinus tachycardia Sinus pause Incomplete RBBB and LAFB Abnormal R-wave progression, early transition Electronically Signed On 06-09-2024 21:02:12 PDT by Stuart Hicks Please click the below link to view image of tracing.
[2024-06-09 09:03] LABS: Basophils # (auto) 0 10 ^3/uL (0-0.2); Eosinophils # (auto) 0 10 ^3/uL (0-0.8); Hemoglobin 15.3 g/dL (13.5-17.5); Lymphocytes # (auto) 0.6 10 ^3/uL (0.4-5.4); Mean Corpuscular Hemoglobin 30.3 pg (28.0-32.0); Mean Corpuscular Hgb Conc. 33.2 g/dL (32.0-36.0); Mean Corpuscular Volume 91.1 fL (80.0-100.0); Monocytes # (auto) 0.3 10 ^3/uL (0-1.3); Monocytes % (auto) 1.8 % (0.0-12.0); Neutrophils # (auto) 18.5 10 ^3/uL (1.6-8.6); Neutrophils % (auto) 95.2 % (37.0-80.0); Nucleated Red Blood Cells % 0.2 %; Platelet Count (auto) 234 10^3/uL (140-450); Red Blood Cells 5.05 10^6/uL (4.5-5.90); Red Cell Distribution Width 13.7 % (11.8-14.3); White Blood Cell 19.4 10^3/uL (4.4-10.8)
[2024-06-09 09:15] LABS: Alanine Aminotransferase 23 U/L (7-40); Albumin 4.3 g/dL (3.2-4.8); Alkaline Phosphatase 83 U/L (46-116); Anion Gap 11 (5-15); Aspartate Aminotransferase 15 U/L (13-40); BUN/Creatinine Ratio 18.5 (10.0-20.0); Blood Urea Nitrogen 15 mg/dL (9-23); Calcium 9.8 mg/dL (8.7-10.4); Carbon Dioxide 23 mmol/L (20-31); Chloride 104 mmol/L (98-107); Potassium 3.9 mmol/L (3.5-5.1); Sodium 138 mmol/L (136-145)
[2024-06-09 09:16] LABS: Bilirubin, Total 0.7 mg/dL (0.2-1.0)
[2024-06-09 09:17] LABS: Glucose 304 mg/dL (74-106)
[2024-06-09] MEDS ORDERED: METH4PAK PO (11:38)
[2024-06-09] MEDS ORDERED: ALBU0.084 IN (11:38)
[2024-06-09] MEDS ORDERED: LEVO750T40 PO (11:38)
[2024-06-09] MEDS ORDERED: IPRA0.03 (11:38)
--- NOTE | 2024-06-09 20:36 | DVHDSRES ---
Discharge Summary Date of Admission Resident Creating Document: ROSANNE LESLIE RESIDENT Jun 07, 2024 at 22:29 Date of Discharge: Jun 09, 2024 Admitting Diagnosis asthma exacerbation Labs/Diagnostic Data: Laboratory Results Test 06/09/24 08:32 06/09/24 08:31 06/08/24 11:17 06/07/24 15:49 White Blood Count 19.4 10^3/uL (4.4-10.8) Red Blood Count 5.05 10^6/uL (4.5-5.90) Hemoglobin 15.3 g/dL (13.5-17.5) Hematocrit 46.0 % (41.0-53.0) Mean Corpuscular Volume 91.1 fL (80.0-100.0) Mean Corpuscular Hemoglobin 30.3 pg (28.0-32.0) Mean Corpuscular Hemoglobin Concent 33.2 g/dL (32.0-36.0) Red Cell Distribution Width 13.7 % (11.8-14.3) Platelet Count 234 10^3/uL (140-450) Mean Platelet Volume 7.8 fL (6.9-10.8) Neutrophils (%) (Auto) 95.2 % (37.0-80.0) Lymphocytes (%) (Auto) 3.0 % (10.0-50.0) Monocytes (%) (Auto) 1.8 % (0.0-12.0) Eosinophils (%) (Auto) 0.0 % (0.0-7.0) Basophils (%) (Auto) 0.0 % (0.0-2.0) Neutrophils # (Auto) 18.5 10 ^3/uL (1.6-8.6) Lymphocytes # (Auto) 0.6 10 ^3/uL (0.4-5.4) Monocytes # (Auto) 0.3 10 ^3/uL (0-1.3) Eosinophils # (Auto) 0 10 ^3/uL (0-0.8) Basophils # (Auto) 0 10 ^3/uL (0-0.2) Nucleated Red Blood Cells 0.2 % Sodium Level 138 mmol/L (136-145) Potassium Level 3.9 mmol/L (3.5-5.1) Chloride Level 104 mmol/L (98-107) Carbon Dioxide Level 23 mmol/L (20-31) Anion Gap 11 (5-15) Blood Urea Nitrogen 15 mg/dL (9-23) Creatinine 0.81 mg/dL (0.700-1.30) Glomerular Filtration Rate Calc 97 mL/min (>90) BUN/Creatinine Ratio 18.5 (10.0-20.0) Serum Glucose 304 mg/dL (74-106) Calcium Level 9.8 mg/dL (8.7-10.4) Total Bilirubin 0.7 mg/dL (0.2-1.0) Aspartate Amino Transferase (AST) 15 U/L (13-40) Alanine Aminotransferase (ALT) 23 U/L (7-40) Alkaline Phosphatase 83 U/L (46-116) Total Protein 7.0 g/dL (5.7-8.2) Albumin 4.3 g/dL (3.2-4.8) Urine Color Yellow (Yellow) Urine Clarity Clear (Clear) Urine pH 6.0 (5.0-9.0) Urine Specific [place] 1.042 (1.001-1.035) Urine Protein Negative (Negative) Urine Ketones Negative (Negative) Urine Blood Negative /uL (Negative) Urine Nitrite Negative (Negative) Urine Bilirubin Negative (Negative) Urine Urobilinogen 2 mg/dL (Negative) Urine Leukocyte Esterase Negative /uL (Negative) Urine RBC 1 /hpf (0 - 3) Urine Microscopic WBC < 1 /HPF (0-3) Urine Squamous Epithelial Cells Few /hpf (<5) Urine Bacteria None seen /hpf (None Seen) Urine Glucose 4+ mg/dL (Normal) Urine Opiates Screen Neg (NEGATIVE) Urine Fentanyl Screen Neg (NEGATIVE) Urine Barbiturates Screen Neg (NEGATIVE) Urine Phencyclidine Screen Neg (NEGATIVE) Urine Amphetamines Screen Neg (NEGATIVE) Urine Benzodiazepines Screen Neg (NEGATIVE) Urine Cocaine Screen Neg (NEGATIVE) Urine Cannabinoids Screen Neg (NEGATIVE) Influenza Type A Antigen Negative (Negative) Influenza Type B Antigen Negative (Negative) SARS-CoV-2 Antigen (Rapid) Negative (NEGATIVE) C-Reactive Protein High Sensitivity 0.83 mg/dL (<1.0) Other Laboratory Tests 06/09/24 08:32 Brief Hx & Hospital Course: A 69-year-old obese male with a history of asthma, hyperlipidemia, and osteoarthritis presented with shortness of breath, productive cough, and wheezing. Symptoms began after an exposure to tree leaves 4 days prior, which appeared to exacerbate his respiratory condition. He was brought in by EMS after no relief with home albuterol and was noted to be in respiratory distress with expiratory wheezes, RR in the 30s, and SpO? of 96% on room air. He received albuterol and ipratropium en route with symptomatic improvement. He denied chest pain, fever, or chills. On admission, differential included asthma vs. COPD exacerbation and possible pneumonia. Workup and empiric treatment were initiated with ceftriaxone, azithromycin, solumedrol, and bronchodilator therapy. The patient remained hemodynamically stable, ambulatory, and improved clinically. At discharge, the patient was prescribed albuterol and ipratropium inhalers, a 5-day course of levofloxacin 750 mg PO daily, and a 7-day course of oral methylprednisolone. He was instructed to continue supportive care at home and follow up at the discharge clinic. Case discussed with Dr Guardado Operations or Procedures CHEST RADIOGRAPH Indication: sob Technique: Single frontal view of the chest was obtained Comparison: XY CHEST PORTABLE on DOS: 05/13/24, XY CHEST XRAY 1 VIEW on DOS: 05/12/24 FINDINGS: Lines and Tubes: None Lungs: No focal consolidation. Pleura: No effusion. No pneumothorax. Cardiomediastinal contours: Unremarkable Bones: No acute osseous abnormality. IMPRESSION: No acute cardiopulmonary disease. Condition at Discharge: Stable Final Diagnosis/Problems List #COPD vs asthma exacerbation? #Possible pneumonia gram+/gram- #Hyperlipidemia #Obesity #Ostheoarthritis #Ex smoker Discharge Disposition: Home Discharge Instruct/Medications Diet: Consistent carbohydrate, Cardiac 2g Na,low cholest Activity: Light activity Follow Up/Referral: dc clinic Medications: see prescription Discharge Statement: "Patient was advised to return to the ER or call 911 if any headaches, dizziness, shortness of breath, chest pain, abdominal pain, bleeding, fevers, or worsening of medical condition. Patient was counseled about treatment plan, medications, possible side effects, patientverbalized understanding. All questions were answered to the best of my ability. This discharge took greater then 30 minutes in planning, reviewing documentation, counseling the patient, and discussing with other team members." ASSESSMENT ASSESSMENT Assessment asthma exacerbation Date of Service: Jun 09, 2024 Billing Provider: SAMI GUARDADO MD Common Visit Codes: 04001-HAG/OBS DISCH DAY >30min ROSANNE LESLIE RESIDENT Jun 09, 2024 20:36 SAMI GUARDADO MD Jun 09, 2024 22:43
== END 2024-06-09 12:57 | disposition home or self-care (01) | DRG 190 ==
LOC: EDBD 15:10 → ER 15:25 → OVERFLOW 22:29 → WEST WING 06-08 22:22
PROVIDERS: ADMIT Student in an Organized Health Care Education/Training Program; ATTEND Student in an Organized Health Care Education/Training Program
DX: J44.1 Chronic obstructive pulmonary disease with (acute) exacerbation (principal); J15.69 Pneumonia due to other Gram-negative bacteria; J15.9 Unspecified bacterial pneumonia; J45.901 Unspecified asthma with (acute) exacerbation; J45.902 Unspecified asthma with status asthmaticus; J44.0 Chronic obstructive pulmonary disease with (acute) lower respiratory infection; E66.9 Obesity, unspecified; E78.5 Hyperlipidemia, unspecified; M19.09 Primary osteoarthritis, other specified site; Z79.2 Long term (current) use of antibiotics; Z79.899 Other long term (current) drug therapy; Z83.3 Family history of diabetes mellitus; Z87.891 Personal history of nicotine dependence; Z68.34 Body mass index [BMI] 34.0-34.9, adult
CPT/HCPCS: 36415; 71045; 80048; 80053; 80307; 81001; 85025; 86141; 87081; 87426; 87804; 93005; 94640; 96374; G0378; J2470

== ENCOUNTER 2024-06-17 18:29 | Emergency (ER) | payer OTHER, MEDICAID ==
[~2024-06-17] VITALS: Ht 175.3 cm; Wt 95.2 kg
[~2024-06-17 18:29] MED LIST changes: +ALBU0.084 IN; +IPRA0.03; +LEVO750T40 PO; +METH4PAK PO
--- NOTE | 2024-06-17 19:04 | ED.PDOC ---
SOB-HPI HPI Comments 69-year-old male who came to ER due to fever. Patient recently discharged here 8 days ago, diagnosed with asthma versus COPD; rule out pneumonia. Patient was seen at urgent care earlier today, there complaining of productive cough, shortness a breath, chest tightness, chills and fever. Patient was sent to the ER to rule out pneumonia. Saturating 96% on room air upon arrival Chief Complaint: Fever Time Seen by MD: 19:04 Primary Care Provider: none Reviewed notes: Nurses Notes Information Source: Patient Mode of Arrival: Ambulatory Severity: Moderate Timing: Days Duration: Intermittent Context: At Rest History of: Asthma Prehospital treatment: Breathing Tx Modifying Factors: Nothing Associated Signs and Symptoms: Fever, Cough, Chest Pain Quality: Tightness Radiation: No Radiation If cough with SOB: Productive Past Medical History PAST MEDICAL HISTORY: Arthritis, Asthma, High Lipids Surgical History: Denies all surgeries Family History Family History: Reviewed,noncontributory to illness Social History Smoker: Cigarettes Alcohol: Occasionally Drugs: Denies Drug Use Lives In: Home Constitutional: reports: chills, fever; denies: diaphoresis, fatigue, malaise, sweats, weakness, others EENTM: denies: blurred vision, double vision, ear bleeding, ear discharge, ear drainage, ear pain, ear ringing, eye pain, eye redness, hearing loss, mouth pain, mouth swelling, nasal discharge, nose bleeding, nose congestion, nose pain, photophobia, tearing, throat pain, throat swelling, voice changes, others Respiratory: reports: cough, SOB at rest, shortness of breath; denies: hemoptysis, orthopnea, SOB with excertion, stridor, wheezing, others Cardiovascular: reports: chest pain; denies: dizzy spells, diaphoresis, Dyspnea on exertion, edema, irregular heart beat, left arm pain, lightheadedness, palpitations, PND, syncope, others Gastrointestinal: denies: abdomen distended, abdominal pain, blood streaked bowels, constipated, diarrhea, dysphagia, difficulty swallowing, hematemesis, melena, nausea, poor appetite, poor fluid intake, rectal bleeding, rectal pain, vomiting, others Genitourinary: denies: burning, dysuria, flank pain, frequency, hematuria, incontinence, penile discharge, penile sore, pain, testicle pain, testicle swelling, urgency, others Neurological: denies: dizziness, fainting, headache, left sided numbness, left sided weakness, numbness, paresthesia, pre-existing deficit, right sided numbness, right sided weakness, seizure, speech problems, tingling, tremors, weakness, others Musculoskeletal: denies: back pain, gout, joint pain, joint swelling, muscle pain, muscle stiffness, neck pain, others Integumetry: denies: bruises, change in color, change in hair/nails, dryness, laceration, lesions, lumps, rash, wounds, others Allergic/Immunocompromised: denies: Difficulty Healing, Frequent Infections, Hives, Itching, others Hematologic/Lymphatic: denies: anemia, blood clots, easy bleeding, easy bruising, swollen glands, others Endocrine: denies: excessive hunger, excessive sweating, excessive thirst, excessive urination, flushing, intolerance to cold, intolerance to heat, unexplained weight gain, unexplained weight loss, others Psychiatric: denies: anxiety, bipolar disorder, depression, hopeless, panic disorder, schizophrenia, sleepless, suicidal, others Physical Exam General Appearance: No Apparent Distress, Normal HEENT: Normal ENT Inspection, Pharynx Normal, TMs Normal Neck: Full Range of Motion, Non-Tender, Normal, Normal Inspection Respiratory: Chest Non-Tender, Lungs Clear, No Accessory Muscle Use, No Respiratory Distress, Normal Breath Sounds Cardiovascular: No Edema, No JVD, No Murmur, No Gallop, Normal Peripheral Pulses, Regular Rate/Rhythm Breast Exam: Deferred Gastrointestinal: No Organomegaly, Non Tender, No Pulsatile Mass, Normal Bowel Sounds, Soft Genitalia: Deferred Pelvic: Deferred Rectal: Deferred Extremities: No calf tenderness, Normal capillary refill, Normal inspection, Normal range of motion, Non-tender, No pedal edema Musculoskeletal : Apperance: Normal Neurologic: Alert, converting technician II-XII nml as Tested, No Motor Deficits, Normal Affect, Normal Mood, No Sensory Deficits Cerebellar Function: Normal Reflexes: Normal Skin: Dry, Normal Color, Warm Lymphatic: No Adenopathy Was a procedure done? Was a procedure done?: No Differential Dx Differential Diagnosis: Asthma, Bronchitis, COPD, Pneumonia, URI X-Ray, Labs, Meds, VS Vital Signs Date Time Temp Pulse Resp B/P (MAP) Pulse Ox O2 Delivery O2 Flow Rate FiO2 06/17/24 19:52 89 18 96 Room Air* 0 21 06/17/24 19:52 99.5 89 18 123/74 (90) 96 99.5 06/17/24 19:28 18 98 Room Air* 0 21 06/17/24 19:03 Room Air* 0 06/17/24 18:59 99.5 96 18 123/74 (90) 96 99.5 Lab Test 06/17/24 20:13 06/17/24 19:11 Range/Units Troponin I High Sensitivity 4 4 </=54 ng/L White Blood Count 8.4 4.4-10.8 10^3/uL Red Blood Count 5.18 4.5-5.90 10^6/uL Hemoglobin 15.9 13.5-17.5 g/dL Hematocrit 46.4 41.0-53.0 % Mean Corpuscular Volume 89.6 80.0-100.0 fL Mean Corpuscular Hemoglobin 30.7 28.0-32.0 pg Mean Corpuscular Hemoglobin Concent 34.3 32.0-36.0 g/dL Red Cell Distribution Width 14.2 11.8-14.3 % Platelet Count 201 140-450 10^3/uL Mean Platelet Volume 7.5 6.9-10.8 fL Neutrophils (%) (Auto) 56.2 37.0-80.0 % Lymphocytes (%) (Auto) 25.1 10.0-50.0 % Monocytes (%) (Auto) 9.1 0.0-12.0 % Eosinophils (%) (Auto) 8.8 H 0.0-7.0 % Basophils (%) (Auto) 0.8 0.0-2.0 % Neutrophils # (Auto) 4.7 1.6-8.6 10 ^3/uL Lymphocytes # (Auto) 2.1 0.4-5.4 10 ^3/uL Monocytes # (Auto) 0.8 0-1.3 10 ^3/uL Eosinophils # (Auto) 0.7 0-0.8 10 ^3/uL Basophils # (Auto) 0.1 0-0.2 10 ^3/uL Nucleated Red Blood Cells 0.1 % Sodium Level 138 136-145 mmol/L Potassium Level 4.2 3.5-5.1 mmol/L Chloride Level 103 98-107 mmol/L Carbon Dioxide Level 28 20-31 mmol/L Anion Gap 7 5-15 Blood Urea Nitrogen 9 9-23 mg/dL Creatinine 0.72 0.700-1.30 mg/dL Glomerular Filtration Rate Calc 100 >90 mL/min BUN/Creatinine Ratio 12.5 10.0-20.0 Serum Glucose 220 H 74-106 mg/dL Lactic Acid Level 1.1 0.4-2.0 mmol/L Calcium Level 9.1 8.7-10.4 mg/dL Total Bilirubin 0.9 0.2-1.0 mg/dL Aspartate Amino Transferase (AST) 10 L 13-40 U/L Alanine Aminotransferase (ALT) 20 7-40 U/L Alkaline Phosphatase 107 46-116 U/L Total Protein 6.5 5.7-8.2 g/dL Albumin 4.1 3.2-4.8 g/dL Current Medications Medications (Trade) Dose Ordered Sig/Martinez Route Start Time Stop Time Status Last Admin Albuterol (Ventolin Medneb) 5 mg ONCE ONCE N 06/17/24 19:00 06/17/24 19:01 DC 06/17/24 19:26 Ipratropium [place] (Atrovent Medneb) 0.5 mg ONCE ONCE HHN 06/17/24 19:00 06/17/24 19:01 DC 06/17/24 19:26 Acetaminophen (Tylenol Tablet) 1,000 mg ONCE ONCE PO 06/17/24 19:00 06/17/24 19:01 DC 06/17/24 19:41 Time of 1ST Reevaluation: 19:01 Reevaluation 1ST: Unchanged Patient Education/Counseling: Diagnosis, Treatment Family Education/Counseling: No Family Present Departure 1 Departure Time of Disposition: 21:00 Impression: Primary Impression: COPD exacerbation Additional Impression: Upper respiratory infection Disposition: 01 HOME / SELF CARE / HOMELESS Condition: Stable e-Prescriptions Azithromycin (Azithromycin) 500 Mg Tab 1 TAB PO DAILY for 7 Days, #7 TAB Prov: MICHELLE WEAVER MD 06/17/24 Albuterol Sulfate (Albuterol Sulfate Hfa) 108 Mcg/Act Aer 108 MCG IN Q6HP PRN, #1 AER Prov: MICHELLE WEAVER MD 06/17/24 Albuterol Sulfate (Albuterol Sulfate) 0.083 % Neb 1 VIAL NEB Q4HPRN PRN, #50 VIAL Prov: MICHELLE WEAVER MD 06/17/24 Discharged With: Self Critical Care Note Critical Care Time?: No Stability Stability form required: No Heart Score Heart Score: Heart Score Response (Comments) Value History Slightly Suspicious 0 EKG Normal 0 Age >65 2 Risk Factors 1 or 2 risk factors 1 Troponin Normal limit 0 Total 3 I personally scribed for MICHELLE WEAVER MD ([email or web address]) on 06/17/24 at 19:04. Electronically submitted by Bryant Martin ([email or web address]). MICHELLE WEAVER MD Jun 17, 2024 19:04
[2024-06-17] MEDS: IPRATROPIUM BROM 0.5 MG/2.5ML INH SOL HHN ONE (19:26)
[2024-06-17] MEDS: ALBUTEROL SULF 2.5 MG/0.5ML(0.5%) NEB SOLN HHN ONE (19:26)
--- NOTE | 2024-06-17 19:28 | DVH ---
CHEST RADIOGRAPH Indication: SOB Technique: Single frontal view of the chest was obtained COMPARISON: XY CHEST PORTABLE on DOS: 06/07/24 FINDINGS: Lines and Tubes: None Lungs: Clear Pleura: No effusion. No pneumothorax. Cardiomediastinal contours: Unremarkable Bones: Unremarkable IMPRESSION: No abnormality demonstrated.
[2024-06-17 19:35] LABS: Basophils # (auto) 0.1 10 ^3/uL (0-0.2); Basophils % (auto) 0.8 % (0.0-2.0); Eosinophils # (auto) 0.7 10 ^3/uL (0-0.8); Eosinophils % (auto) 8.8 % (0.0-7.0); Hematocrit 46.4 % (41.0-53.0); Hemoglobin 15.9 g/dL (13.5-17.5); Lymphocytes # (auto) 2.1 10 ^3/uL (0.4-5.4); Lymphocytes % (auto) 25.1 % (10.0-50.0); Mean Corpuscular Hemoglobin 30.7 pg (28.0-32.0); Mean Corpuscular Hgb Conc. 34.3 g/dL (32.0-36.0); Mean Corpuscular Volume 89.6 fL (80.0-100.0); Monocytes # (auto) 0.8 10 ^3/uL (0-1.3); Monocytes % (auto) 9.1 % (0.0-12.0); Neutrophils # (auto) 4.7 10 ^3/uL (1.6-8.6); Neutrophils % (auto) 56.2 % (37.0-80.0); Nucleated Red Blood Cells % 0.1 %; Platelet Count (auto) 201 10^3/uL (140-450); Red Blood Cells 5.18 10^6/uL (4.5-5.90); Red Cell Distribution Width 14.2 % (11.8-14.3); White Blood Cell 8.4 10^3/uL (4.4-10.8)
[2024-06-17] MEDS: ACETAMINOPHEN 325 MG TAB PO ONE (19:41)
[2024-06-17 19:52] VITALS: PULSE 89; RESP 18; O2SAT 96
[2024-06-17 19:57] LABS: Alanine Aminotransferase 20 U/L (7-40); Albumin 4.1 g/dL (3.2-4.8); Alkaline Phosphatase 107 U/L (46-116); Anion Gap 7 (5-15); BUN/Creatinine Ratio 12.5 (10.0-20.0); Bilirubin, Total 0.9 mg/dL (0.2-1.0); Blood Urea Nitrogen 9 mg/dL (9-23); Calcium 9.1 mg/dL (8.7-10.4); Carbon Dioxide 28 mmol/L (20-31); Chloride 103 mmol/L (98-107); Potassium 4.2 mmol/L (3.5-5.1); Sodium 138 mmol/L (136-145); Total Protein 6.5 g/dL (5.7-8.2)
[2024-06-17 20:02] LABS: Aspartate Aminotransferase 10 U/L (13-40); Glucose 220 mg/dL (74-106)
[2024-06-17] MEDS ORDERED: AZIT500T66 PO (20:09)
[2024-06-17] MEDS ORDERED: ALBU108A5 IN (20:09)
[2024-06-17] MEDS ORDERED: ALBU0.084 NEB (20:09)
[2024-06-17 21:40] VITALS: BP 121/73; PULSE 88; RESP 18; TEMP 98.5; O2SAT 98
[2024-06-17] MEDS: AZITHROMYCIN 250 MG TAB PO ONE (21:43)
== END 2024-06-17 21:44 | disposition home or self-care (01) ==
LOC: ER 18:34
DX: J44.1 Chronic obstructive pulmonary disease with (acute) exacerbation (principal); J06.9 Acute upper respiratory infection, unspecified; M19.90 Unspecified osteoarthritis, unspecified site; E78.5 Hyperlipidemia, unspecified; F17.210 Nicotine dependence, cigarettes, uncomplicated
CPT/HCPCS: 36415; 71045; 80053; 83605; 84484; 85025; 87040; 94640

== ENCOUNTER 2024-06-27 21:07 | Inpatient (IN) | payer OTHER, MEDICAID ==
[~2024-06-27] VITALS: Ht 170.2 cm; Wt 95.7 kg
[~2024-06-27 21:07] MED LIST changes: +ALBU0.084 NEB; +ALBU108A5 IN; +AZIT500T66 PO
[2024-06-27 21:25] VITALS: PULSE 101; RESP 19; O2SAT 96
[2024-06-27] MEDS: ALBUTEROL SULF 2.5 MG/0.5ML(0.5%) NEB SOLN NEB ONE (21:41)
[2024-06-27] MEDS: IPRATROPIUM BROM 0.5 MG/2.5ML INH SOL NEB ONE (21:41)
[2024-06-27 21:59] LABS: Basophils # (auto) 0.1 10 ^3/uL (0-0.2); Basophils % (auto) 1.2 % (0.0-2.0); Eosinophils # (auto) 1.1 10 ^3/uL (0-0.8); Eosinophils % (auto) 11.8 % (0.0-7.0); Hematocrit 45.8 % (41.0-53.0); Hemoglobin 15.4 g/dL (13.5-17.5); Lymphocytes # (auto) 2.2 10 ^3/uL (0.4-5.4); Lymphocytes % (auto) 24.5 % (10.0-50.0); Mean Corpuscular Hemoglobin 30.4 pg (28.0-32.0); Mean Corpuscular Hgb Conc. 33.6 g/dL (32.0-36.0); Mean Corpuscular Volume 90.4 fL (80.0-100.0); Monocytes # (auto) 0.5 10 ^3/uL (0-1.3); Monocytes % (auto) 5.9 % (0.0-12.0); Neutrophils % (auto) 56.6 % (37.0-80.0); Nucleated Red Blood Cells % 0.1 %; Platelet Count (auto) 222 10^3/uL (140-450); Red Blood Cells 5.07 10^6/uL (4.5-5.90); Red Cell Distribution Width 14.2 % (11.8-14.3); White Blood Cell 8.9 10^3/uL (4.4-10.8)
--- NOTE | 2024-06-27 22:00 | ED.PDOC ---
History of Present Illness HPI Comments 69 y/o obese M, with a history of osteoarthritis, asthma, HLD, and former tobacco cigarette use, is BIBA for c/o shortness of breath, nonproductive cough, with associated chest-wall discomfort, and pressure-like headache. Per EMS report, patient is a [place] speaker and endorses on sudden onset of symptoms, this evening, with no relief or improvement with at-home albuterol or nebulizer use. He was noted to have been found on scene with wheezing in bilateral, upper- lobes and showed improvement with breathing treatment administered en route. Family reported to EMS on scene on patient, recently, recovering from PNA/Bronchitis. Patient reports to additional recent history of being caught in the rain, yesterday, while with his . Denies any recent sick contact or long travel along with having any chest pain, palpitations, fever, chills, nausea, vomiting, or further associated symptoms. Chief Complaint: Shortness of Breath Time Seen by MD: 21:15 Primary Care Provider: none Reviewed Notes: Nurses Notes, Gear Lapper Notes, Medications, Allergies Allergies: Coded Allergies: NO KNOWN ALLERGIES (Unverified , 05/10/24) Home Meds Active Scripts Azithromycin (Azithromycin) 500 Mg Tab, 1 TAB PO DAILY for 7 Days, #7 TAB Prov:MICHELLE WEAVER MD 06/17/24 Albuterol Sulfate (Albuterol Sulfate Hfa) 108 Mcg/Act Aer, 108 MCG IN Q6HP PRN, #1 AER Prov:MICHELLE WEAVER MD 06/17/24 Albuterol Sulfate (Albuterol Sulfate) 0.083 % Neb, 1 VIAL NEB Q4HPRN PRN, #50 VIAL Prov:MICHELLE WEAVER MD 06/17/24 Levofloxacin Hemihydrate (LEVOFLOXACIN) 750 Mg Tab, 750 MG PO DAILY for 5 Days, #5 TAB Prov:ROSANNE LESLIE 06/09/24 Methylprednisolone (Medrol Dosepak) 4 Mg Juan J, 4 MG PO UD for 7 Days, #21 TAB UAD Prov:ROSANNE LESLIE 06/09/24 Ipratropium Mesa (Ipratropium Mesa) 0.03 % Spr, 0.03 % NA TID for 30 Days, #1 SPRAY Prov:ROSANNE LESLIE 06/09/24 Albuterol Sulfate (Albuterol Sulfate) 0.083 % Neb, 0.083 % IN TID for 1 Day, #1 INH Prov:ROSANNE LESLIE RESIDENT 06/09/24 Cefdinir (Cefdinir) 300 Mg Cap, 1 CAP PO BID for 5 Days, #10 CAP Prov:ANASTASIYA REICH LOGISTICS PLANNING ENGINEER 05/13/24 Reported Medications Albuterol Sulfate (Ventolin) 2.5 Mg/0.5 Ml Nb, 1 VIAL NEB Q6HR, #120 VIAL 5 Refills 05/11/24 Information Source: Patient, Emergency Med Personnel Mode of Arrival: EMS Severity: Moderate Timing: Hours Duration: Since onset Prehospital treatment: 12 Lead EKG, Breathing Tx, Corn Husk Baler Review of Systems: REVIEW OF SYSTEMS: No fever, no chills, or fatigue HEENT: No sore throat, no earache, no congestion, no neck pain. Cardiac: No chest pain. No palpitations. Lungs: Shortness of breath and nonproductive cough GI: No nausea, no vomiting, no diarrhea, no constipation, no abdominal pain : No dysuria, frequency, or urgency. No hematuria. Musculoskeletal: Chest-wall discomfort. No joint pain , no joint swelling, no extremity edema. Skin: No rash, no itching. Neuro: Headache, no dizziness, no weakness Vital Signs Vital Signs Date Time Temp Pulse Resp B/P (MAP) Pulse Ox O2 Delivery O2 Flow Rate FiO2 06/27/24 22:00 103 20 120/82 (95) 95 06/27/24 21:41 Room Air* 0 21 21 06/27/24 21:25 98.3 98.3 Physical Exam General: Awake, alert and oriented. No acute distress. Skin: Skin in warm, dry and intact. Appropriate color for ethnicity. HEENT: The head is normocephalic and atraumatic. Conjunctivae are clear without exudates or hemorrhage. Sclera is non-icteric. EOM are intact. No signs of nystagmus. Eyelids are normal in appearance without swelling or lesions. Oral mucosa is pink and moist Neck: The neck is supple with normal range of motion. No JVD. Cardiac: Rapid heart rate, with regular rhythm. No murmurs, gallops, or rubs are auscultated. Respiratory: Wheezing bilaterally. Tachypneic. No signs of respiratory distress. Abdominal: Abdomen is soft, non-tender without distention. Bowel sounds are present and normoactive in all four quadrants. Extremities: Upper and lower extremities are atraumatic in appearance without deformity or edema. Neurological: The patient is awake, alert and oriented to person, place, and time with normal speech. Speech is clear. There is no facial asymmetry. Psychiatric: Appropriate mood and affect. Good judgement and insight. Past Medical History PAST MEDICAL HISTORY: Arthritis (osteoarthritis), Asthma, High Lipids Surgical History: Denies all surgeries Family History Family History: Reviewed,noncontributory to illness Social History Smoker: Quit Greater Than 1 Year, Cigarettes Alcohol: Occasionally Drugs: Denies Drug Use Lives In: Home Was a procedure done? Was a procedure done?: No EKG EKG : Pulse Rate (adult): 97 [place]: Normal Cardiac Rhythm: NSR Hypertrophy: None ST: Nonsp Comments Left anterior fascicular block Differential Dx Considerations may include: asthma exacerbation, URI, PNA, viral syndrome, PE, DC, among others X-Ray, Labs, Meds, VS Vital Signs Date Time Temp Pulse Resp B/P (MAP) Pulse Ox O2 Delivery O2 Flow Rate FiO2 06/27/24 22:00 103 20 120/82 (95) 95 06/27/24 22:00 97 06/27/24 21:41 22 96 Room Air* 0 21 21 06/27/24 21:25 101 19 96 Room Air* 0 21 06/27/24 21:25 98.3 101 19 120/82 (95) 99 98.3 06/27/24 21:14 97 06/27/24 21:07 99.2 108 20 116/70 (85) 96 99.2 Lab Test 06/27/24 22:26 06/27/24 21:43 Range/Units Influenza Type A Antigen Negative Negative Influenza Type B Antigen Negative Negative SARS-CoV-2 Antigen (Rapid) Negative NEGATIVE White Blood Count 8.9 4.4-10.8 10^3/uL Red Blood Count 5.07 4.5-5.90 10^6/uL Hemoglobin 15.4 13.5-17.5 g/dL Hematocrit 45.8 41.0-53.0 % Mean Corpuscular Volume 90.4 80.0-100.0 fL Mean Corpuscular Hemoglobin 30.4 28.0-32.0 pg Mean Corpuscular Hemoglobin Concent 33.6 32.0-36.0 g/dL Red Cell Distribution Width 14.2 11.8-14.3 % Platelet Count 222 140-450 10^3/uL Mean Platelet Volume 7.1 6.9-10.8 fL Neutrophils (%) (Auto) 56.6 37.0-80.0 % Lymphocytes (%) (Auto) 24.5 10.0-50.0 % Monocytes (%) (Auto) 5.9 0.0-12.0 % Eosinophils (%) (Auto) 11.8 H 0.0-7.0 % Basophils (%) (Auto) 1.2 0.0-2.0 % Neutrophils # (Auto) 5.0 1.6-8.6 10 ^3/uL Lymphocytes # (Auto) 2.2 0.4-5.4 10 ^3/uL Monocytes # (Auto) 0.5 0-1.3 10 ^3/uL Eosinophils # (Auto) 1.1 H 0-0.8 10 ^3/uL Basophils # (Auto) 0.1 0-0.2 10 ^3/uL Nucleated Red Blood Cells 0.1 % D-Dimer, Quantitative 1.06 H 0.0-0.49 mg/L FEU Sodium Level 141 136-145 mmol/L Potassium Level 3.5 3.5-5.1 mmol/L Chloride Level 104 98-107 mmol/L Carbon Dioxide Level 28 20-31 mmol/L Anion Gap 9 5-15 Blood Urea Nitrogen 8 L 9-23 mg/dL Creatinine 0.87 0.700-1.30 mg/dL Glomerular Filtration Rate Calc 95 >90 mL/min BUN/Creatinine Ratio 9.2 L 10.0-20.0 Serum Glucose 153 H 74-106 mg/dL Calcium Level 9.6 8.7-10.4 mg/dL Total Bilirubin 0.6 0.2-1.0 mg/dL Aspartate Amino Transferase (AST) 12 L 13-40 U/L Alanine Aminotransferase (ALT) 15 7-40 U/L Alkaline Phosphatase 104 46-116 U/L Troponin I High Sensitivity 8 </=54 ng/L B-Type Natriuretic Peptide 28.48 0-100 pg/mL Total Protein 7.2 5.7-8.2 g/dL Albumin 4.3 3.2-4.8 g/dL Current Medications Medications (Trade) Dose Ordered Sig/Martinez Route Start Time Stop Time Status Last Admin Ipratropium [place] (Atrovent Medneb) 0.5 mg ONCE ONCE NEB 06/27/24 21:30 06/27/24 21:31 DC 06/27/24 21:41 Albuterol (Ventolin Medneb) 2.5 mg ONCE ONCE NEB 06/27/24 21:30 06/27/24 21:31 DC 06/27/24 21:41 Dexamethasone Sodium Phosphate (Decadron Injection) 10 mg ONCE ONCE IM 06/27/24 21:30 06/27/24 21:31 DC 06/27/24 22:14 Albuterol (Ventolin Medneb) 2.5 mg ONCE STAT NEB 06/27/24 23:07 06/27/24 23:16 DC 06/27/24 23:36 Acetylcysteine (Mucomyst Inahalation 10%) 100 mg ONCE STAT IN 06/27/24 23:07 06/27/24 23:16 DC 06/27/24 23:35 [place] [id number] Ph: [phone] DIAGNOSTIC IMAGING Diagnostic Imaging Report : [id number] Signed PATIENT: CAROLYN OSORIO ACCT: [id number] UNIT: [id number] : 1955 LOC: ER ROOM / BED: / AGE / SEX: 69 / M ADM STATUS: REG ER SERVICE 26 ORDERING PHYSICIAN: BILLIE SHIELDS MD PROCEDURE(s): CXR1 - CHEST XRAY 1 VIEW REASON: Shortness of breath ORDER NUMBER(s): [id number], ACCESSION NUMBER(s): [id number] CHEST RADIOGRAPH Indication: Shortness of breath Technique: Single frontal view of the chest was obtained Comparison: XY CHEST PORTABLE on DOS: 06/17/24, XY CHEST PORTABLE on DOS: 06/07/24, XY CHEST PORTABLE on DOS: 05/13/24 FINDINGS: Lines and Tubes: None Lungs: No focal consolidation. Pleura: No effusion. No pneumothorax. Cardiomediastinal contours: Unremarkable Bones: No acute osseous abnormality. IMPRESSION: 1. No acute cardiopulmonary disease. ATED BY: BRITTANIE NAIR Jr., DO DICTATED DATE/TIME: 06/27/242249 SIGNED BY: BRITTANIE NAIR Jr., SIGNED DATE/TIME: 06/27/242249 CC: Images Reviewed?: Images reviewed and evaluated by me (Independent interpretation of chest x-ray: No acute disease) Time of 1ST Reevaluation: 21:45 Reevaluation 1ST: Unchanged Patient Education/Counseling: Other (Need for admission) Family Education/Counseling: No Family Present Departure 1 Departure Time of Disposition: 23:28 Impression: Primary Impression: Exacerbation of asthma Disposition: ADMITTED INPATIENT Condition: Stable Comments 69-year-old male with shortness of breath suggestive of asthma exacerbation. D- dimer elevated. CT angio rule out PE pending. Patient admitted to hospitalist service for further treatment, evaluation and monitoring. Extensive evaluation was performed in attempt to identify or rule out: (See differential diagnosis section) The following tests were ordered, and results were reviewed by me and discussed with patient: (See diagnostic results section) The following test were independently interpreted by me: EKG, chest x-ray I reviewed and agreed with the following test results read by other providers: Chest x-ray I reviewed the following notes from the pt's past medical encounters: June 17, 2024 and June 07, 2024 encounters for COPD exacerbation and status asthmaticus, respectively. Additional information was gathered from interviewing the following independent historians: EMS Discussion of management or test interpretation with external physician/other qualified health director of patient care: N/A Addressed one or more chronic illnesses with severe exacerbation, progression, or side effects of treatment: Asthma Decision regarding hospitalization or escalation of hospital level of care: Risk and benefits of admission for further treatment of patient's condition was considered. Due to patient's current clinical condition, high risk of decline and poor outcome if discharged and need for further inpatient management and monitoring, patient will be admitted to the hospital. Drug therapy requiring intensive monitoring for toxicity: N/A Parenteral controlled substances: N/A Decision regarding elective major surgery with identified patient or procedure risk factors: N/A Decision regarding emergency major surgery: N/A Decision not to resuscitate or to de-escalate care because of poor prognosis: N/A Diagnosis or treatment significantly limited by social determinants of health: N/A Critical Care Note Critical Care Time?: No Stability Stability form required: No Heart Score Heart Score: Heart Score Response (Comments) Value History N/A 0 EKG N/A 0 Age N/A 0 Risk Factors N/A 0 Troponin N/A 0 Total 0 I personally scribed for BILLIE SHIELDS MD ([email or web address]) on 06/27/24 at 22:00. Electronically submitted by Zack Wilson ([email or web address]). I personally scribed for BILLIE SHIELDS MD ([email or web address]) on 06/27/24 at 23:20. Electronically submitted by Zack Wilson ([email or web address]). BILLIE SHIELDS MD June 27, 2024 22:00
[2024-06-27 22:11] LABS: Alanine Aminotransferase 15 U/L (7-40); Alkaline Phosphatase 104 U/L (46-116); Anion Gap 9 (5-15); BUN/Creatinine Ratio 9.2 (10.0-20.0); Calcium 9.6 mg/dL (8.7-10.4); Carbon Dioxide 28 mmol/L (20-31); Chloride 104 mmol/L (98-107); Potassium 3.5 mmol/L (3.5-5.1); Sodium 141 mmol/L (136-145); Total Protein 7.2 g/dL (5.7-8.2)
[2024-06-27 22:12] LABS: Albumin 4.3 g/dL (3.2-4.8); Bilirubin, Total 0.6 mg/dL (0.2-1.0)
[2024-06-27 22:13] LABS: Aspartate Aminotransferase 12 U/L (13-40); Blood Urea Nitrogen 8 mg/dL (9-23); Glucose 153 mg/dL (74-106)
[2024-06-27] MEDS: DexAMETHasone SOD PHOS 10MG/1ML VIAL INJ IM ONE (22:14)
--- NOTE | 2024-06-27 22:53 | DVH ---
CHEST RADIOGRAPH Indication: Shortness of breath Technique: Single frontal view of the chest was obtained Comparison: XY CHEST PORTABLE on DOS: 06/17/24, XY CHEST PORTABLE on DOS: 06/07/24, XY CHEST PORTABLE o n DOS: 05/13/24 FINDINGS: Lines and Tubes: None Lungs: No focal consolidation. Pleura: No effusion. No pneumothorax. Cardiomediastinal contours: Unremarkable Bones: No acute osseous abnormality. IMPRESSION: 1. No acute cardiopulmonary disease.
[2024-06-27 23:08] LABS: Rapid Influenza A Negative (Negative); Rapid Influenza B Negative (Negative)
[2024-06-27 23:09] LABS: COVID19 ANTIGEN SOFIA FIA NEGATIVE (NEGATIVE)
[2024-06-27] MEDS ORDERED: ONDANSETRON HCL 4 MG/2 ML VIAL IV PRN (23:30)
[2024-06-27] MEDS ORDERED: HYDROcodone-ACET 5/325MG TAB PO PRN (23:30)
[2024-06-27] MEDS ORDERED: ACETAMINOPHEN 325 MG TAB PO PRN (23:30)
[2024-06-27] MEDS: ACETYLCYSTEINE 10 %(100MG/ML) SOL 4ML IN STA (23:35)
[2024-06-27] MEDS: ALBUTEROL SULF 2.5 MG/0.5ML(0.5%) NEB SOLN NEB STA (23:36)
[2024-06-27 23:45] VITALS: PULSE 105; RESP 20; O2SAT 98
[2024-06-28] VITALS (12 sets, daily range): BP systolic 121–137; BP diastolic 68–77; PULSE 90–105; RESP 16–20; TEMP 97.7–98.4; O2SAT 93–99
[2024-06-28] MEDS: ONDANSETRON HCL 4 MG/2 ML VIAL IV ONE (00:01)
--- NOTE | 2024-06-28 00:07 | DVHHP2 ---
History of Present Illness Reason for Visit: Shortness for breath History of Present Illness 69-year-old male presents for evaluation of shortness for breath. Patient endorses a one day history of worsening shortness for breath with associated nonproductive cough, headache and wheeze. Patient reports using his inhaler and nebulizer at home without relief of the symptoms. Denies chest pain or palpitations. No other acute complaints reported. Past Medical History Asthma, arthritis, dyslipidemia Past Surgical History Denies Family History Noncontributory Smoke: No ALCOHOL: none Drugs: None Lives: with Family Review of Systems Review of Systems Review of systems are currently negative otherwise addressed in HPI. Allergies: Coded Allergies: NO KNOWN ALLERGIES (Unverified , 05/10/24) Medications Current Medications Medications Dose Ordered Sig/Martinez Route Start Time Stop Time Status Last Admin Dose Admin Albuterol 2.5 mg Q6HPRN PRN NEB 06/27/24 23:30 Ipratropium [place] 0.5 mg Q6HPRN PRN NEB 06/27/24 23:30 Methylprednisolone Sodium Succinate 40 mg BID IV 06/28/24 10:00 Acetaminophen/ Hydrocodone Bitart 1 tab Q4HP PRN PO 06/27/24 23:30 Ondansetron HCl 4 mg Q4HP PRN IV 06/27/24 23:30 Enoxaparin Sodium 40 mg DAILY SC 06/28/24 10:00 Acetaminophen 650 mg Q6HP PRN PO 06/27/24 23:30 Exam Vital Signs Vital Signs Date Time Temp Pulse Resp B/P (MAP) Pulse Ox O2 Delivery O2 Flow Rate FiO2 06/27/24 23:45 98 Nasal Cannula 3.0 06/27/24 23:45 105 20 06/27/24 23:45 32 06/27/24 21:25 98.3 120/82 (95) 98.3 Exam Gen: 69-year-old male in mild distress Skin: Warm, dry, normal color and texture, no rash. HEENT: Normocephalic atraumatic, mucous membranes moist and pink. Neck: Cervical and supraclavicular nodes normal without enlargement, trachea is midline, thyroid gland is normal without masses. Pulmonary: Bilateral wheeze Cardiac: Regular rate and rhythm. No murmur Abdomen: Soft, nontender, nondistended, bowel sounds present all 4 quadrants, no guarding, no rigidity, no organomegaly. Extremities: No cyanosis, clubbing, no edema Neuro: Cranial nerves II through XII grossly intact, normal affect and speech, no focal motor deficits. Labs/Xrays ORDERING PHYSICIAN: BILLIE SHIELDS MD PROCEDURE(s): CXR1 - CHEST XRAY 1 VIEW REASON: Shortness of breath ORDER NUMBER(s): [id number], ACCESSION NUMBER(s): [id number] CHEST RADIOGRAPH Indication: Shortness of breath Technique: Single frontal view of the chest was obtained Comparison: XY CHEST PORTABLE on DOS: 06/17/24, XY CHEST PORTABLE on DOS: 06/07/24, XY CHEST PORTABLE on DOS: 05/13/24 FINDINGS: Lines and Tubes: None Lungs: No focal consolidation. Pleura: No effusion. No pneumothorax. Cardiomediastinal contours: Unremarkable Bones: No acute osseous abnormality. IMPRESSION: 1. No acute cardiopulmonary disease. Labs Test 06/27/24 22:26 06/27/24 21:43 Range/Units Influenza Type A Antigen Negative Negative Influenza Type B Antigen Negative Negative SARS-CoV-2 Antigen (Rapid) Negative NEGATIVE White Blood Count 8.9 4.4-10.8 10^3/uL Red Blood Count 5.07 4.5-5.90 10^6/uL Hemoglobin 15.4 13.5-17.5 g/dL Hematocrit 45.8 41.0-53.0 % Mean Corpuscular Volume 90.4 80.0-100.0 fL Mean Corpuscular Hemoglobin 30.4 28.0-32.0 pg Mean Corpuscular Hemoglobin Concent 33.6 32.0-36.0 g/dL Red Cell Distribution Width 14.2 11.8-14.3 % Platelet Count 222 140-450 10^3/uL Mean Platelet Volume 7.1 6.9-10.8 fL Neutrophils (%) (Auto) 56.6 37.0-80.0 % Lymphocytes (%) (Auto) 24.5 10.0-50.0 % Monocytes (%) (Auto) 5.9 0.0-12.0 % Eosinophils (%) (Auto) 11.8 H 0.0-7.0 % Basophils (%) (Auto) 1.2 0.0-2.0 % Neutrophils # (Auto) 5.0 1.6-8.6 10 ^3/uL Lymphocytes # (Auto) 2.2 0.4-5.4 10 ^3/uL Monocytes # (Auto) 0.5 0-1.3 10 ^3/uL Eosinophils # (Auto) 1.1 H 0-0.8 10 ^3/uL Basophils # (Auto) 0.1 0-0.2 10 ^3/uL Nucleated Red Blood Cells 0.1 % D-Dimer, Quantitative 1.06 H 0.0-0.49 mg/L FEU Sodium Level 141 136-145 mmol/L Potassium Level 3.5 3.5-5.1 mmol/L Chloride Level 104 98-107 mmol/L Carbon Dioxide Level 28 20-31 mmol/L Anion Gap 9 5-15 Blood Urea Nitrogen 8 L 9-23 mg/dL Creatinine 0.87 0.700-1.30 mg/dL Glomerular Filtration Rate Calc 95 >90 mL/min BUN/Creatinine Ratio 9.2 L 10.0-20.0 Serum Glucose 153 H 74-106 mg/dL Calcium Level 9.6 8.7-10.4 mg/dL Total Bilirubin 0.6 0.2-1.0 mg/dL Aspartate Amino Transferase (AST) 12 L 13-40 U/L Alanine Aminotransferase (ALT) 15 7-40 U/L Alkaline Phosphatase 104 46-116 U/L Troponin I High Sensitivity 8 </=54 ng/L B-Type Natriuretic Peptide 28.48 0-100 pg/mL Total Protein 7.2 5.7-8.2 g/dL Albumin 4.3 3.2-4.8 g/dL Assessment/Plan Assessment/Plan Assessment Acute on chronic hypoxic respiratory failure Asthma exacerbation Ex-smoker Plan Admit the patient to Med surge to the hospitalist Piyush farrell Methylprednisone CT angio of the chest pending Resume home medications Continue treatment per orders Plan discussed with: Patient My Orders Orders - CALEB OTT Procedure Category Date Status Time Albuterol Medneb PHA 06/27/24 In Process (Ventolin Medneb) 23:30 Ipratropium Medneb PHA 06/27/24 In Process (Atrovent Medneb) 23:30 Methylprednisolone PHA 06/28/24 In Process Sod Succ (Solu Medrol 10:00 Admit ADMIT 06/27/24 Transmitted 23:28 Hydrocodone-Acet PHA 06/27/24 In Process 5/325mg Tab (Creole 23:30 Ondansetron Hcl PHA 06/27/24 In Process (Zofran) 23:30 Enoxaparin Sodium PHA 06/28/24 In Process (Lovenox) 10:00 Cardiac DIET 06/28/24 Transmitted Diet-2gna,Lofat,Lochol Breakfast Condition: Stable MIGUEL 06/27/24 In Process 23:28 Acetaminophen Tablet PHA 06/27/24 In Process (Tylenol Tablet) 23:30 Bedrest With Bathroom MIGUEL 06/27/24 In Process Privileg 23:28 Guaifenesin-Codeine PHA 06/28/24 Logged Liquid (Robitussin/C 00:15 Date of Service: June 27, 2024 Billing Provider: CALEB OTT Common Visit Codes: [id number] INP/OBS CARE (HIGH) CALEB OTT June 28, 2024 00:07
[2024-06-28] MEDS ORDERED: guaiFENesin-CODEINE Liq 5 ML UD PO PRN (00:15)
[2024-06-28] MEDS: IPRATROPIUM BROM 0.5 MG/2.5ML INH SOL NEB PRN (03:01)
[2024-06-28] MEDS: ALBUTEROL SULF 2.5 MG/0.5ML(0.5%) NEB SOLN NEB PRN (03:01)
--- NOTE | 2024-06-28 06:16 | ECG ---
[facility] Test Date: 2024-06-27 Test Time: 21:14:55 Pat Name: CAROLYN LOCKETT Department: ED Room: 0214 Gender: M Hall Porter: TAMI : 1955 Requested By: BILLIE SHIELDS Order Number: [id number] Reading MD: Stuart Hicks Measurements Intervals [place] Rate: 97 P: 65 [place]: 177 QRS: -54 QRSD: 101 T: 57 QT: 338 QTc: 430 Interpretive Statements Sinus rhythm LAD, consider left anterior fascicular block Abnormal R-wave progression, late transition ST elevation, consider inferior injury Electronically Signed On 07-01-2024 20:38:24 PDT by Stuart Hicks Please click the below link to view image of tracing.
--- NOTE | 2024-06-28 09:06 | DVH ---
CLINICAL INFORMATION: 69 years old, Male; Shortness of breath, positive D-dimer, rule out PE. TECHNIQUE: Axial CTA images of the chest were obtained after the uneventful administration of 100 mL of Omnipaque 350 IV contrast. Coronal and sagittal reformatted images and MIP images were obtained, r eviewed, and stored. One or more of the following dose reduction techniques were used: Automated expo sure control. Adjustment of mA and/or kV according to patient size. CTDIvol = 23.32, 26.64, 0.07, 0. 07 mGy DLP = 913.14 mGy-cm COMPARISON: Chest radiograph dated 06/27/2024. FINDINGS: Pulmonary arteries: Limited evaluation for pulmonary embolism due to suboptimal contrast opacificatio n of the pulmonary arteries. No central or lobar pulmonary embolism. Can not exclude segmental or sub segmental pulmonary emboli. Aorta: No aneurysm or dissection. Mild to moderate atherosclerotic calcification. Cardiac: Heart size is within normal limits. Mediastinum/isak: No mass or adenopathy. Lungs: Respiratory motion artifact limits evaluation. Nonspecific small ground-glass opacities in the right lung apex, possibly infectious or inflammatory in nature. No dense focal consolidation. No pne umothorax or pleural effusion. Mild atelectasis in the dependent portions of the lower lobes. Chest wall: No mass or other abnormality. Upper abdomen: Visualized structures in the upper abdomen are unremarkable, although evaluation of th e parenchymal organs is limited on arterial phase images. Bones: No acute fracture or suspicious intraosseous lesions. IMPRESSION: 1. Limited evaluation for pulmonary embolism due to suboptimal contrast opacification of the pulmonar y arteries. No central or lobar pulmonary embolism. Can not exclude segmental or subsegmental pulmona ry emboli. 2. Mild ground-glass opacities in the right upper lobe, possibly infectious or inflammatory in nature . Correlate with clinical findings. No dense focal consolidation. 3. Additional findings as described above.
[2024-06-28] MEDS: ENOXAPARIN SOD 40 MG/0.4 ML SYRINGE SC SCH (10:00)
[2024-06-28] MEDS: methylPREDNISolone SOD SUCC 40 MG/ML VL IV SCH (10:43)
[2024-06-28] MEDS ORDERED: UMEC1AER (11:14)
[2024-06-28] MEDS ORDERED: IPRA0.03 (11:18)
--- NOTE | 2024-06-28 13:18 | DVHPN2 ---
Subjective Patient was states that he still has symptomatic shortness of breath. Reviewed: Care Plan, H&P, Labs, Medications Changes from previous H/P or p: No Changes General: Per HPI Objective Vitals Vital Signs Date Time Temp Pulse Resp B/P (MAP) Pulse Ox O2 Delivery O2 Flow Rate FiO2 06/28/24 13:00 98.1 101 18 137/77 (97) 98 98.1 06/28/24 09:44 Nasal Cannula* 2 28 General Appearance: Alert, Oriented X3, Cooperative, No acute distress HEENT: Atraumatic, PERRLA Lungs: Clear to auscultation, Normal air movement Cardiovascular: Normal S1, Normal S2 Musculoskeletal: Normal sensory function, Normal motor function Extremities: No clubbing, No cyanosis Neuro: Normal gait, Normal speech, Strength at 06/28 X4 ext Skin: Dry, Intact Psych/Mental Status: Mental status NL, Mood NL Medications Current Medications Medications Dose Ordered Sig/Martinez Route Start Time Stop Time Status Last Admin Dose Admin Albuterol 2.5 mg Q6HPRN PRN NEB 06/27/24 23:30 06/28/24 03:01 2.5 MG Ipratropium [place] 0.5 mg Q6HPRN PRN NEB 06/27/24 23:30 06/28/24 03:01 0.5 MG Methylprednisolone Sodium Succinate 40 mg BID IV 06/28/24 10:00 06/28/24 10:43 40 MG Acetaminophen/ Hydrocodone Bitart 1 tab Q4HP PRN PO 06/27/24 23:30 Ondansetron HCl 4 mg Q4HP PRN IV 06/27/24 23:30 Enoxaparin Sodium 40 mg DAILY SC 06/28/24 10:00 Acetaminophen 650 mg Q6HP PRN PO 06/27/24 23:30 Guaifenesin/ Codeine Phosphate 5 ml Q4HPRN PRN PO 06/28/24 00:15 Laboratory Results Laboratory Tests 06/27/24 21:43 Chemistry Test 06/27/24 21:43 Albumin 4.3 g/dL (3.2-4.8) Calcium Level 9.6 mg/dL (8.7-10.4) Total Protein 7.2 g/dL (5.7-8.2) Coagulation Test 06/27/24 21:43 D-Dimer, Quantitative 1.06 mg/L FEU (0.0-0.49) H Cardiac Markers Test 06/27/24 21:43 B-Type Natriuretic Peptide 28.48 pg/mL (0-100) LFT Test 06/27/24 21:43 Alanine Aminotransferase (ALT) 15 U/L (7-40) Alkaline Phosphatase 104 U/L (46-116) Aspartate Amino Transferase (AST) 12 U/L (13-40) L Total Bilirubin 0.6 mg/dL (0.2-1.0) Labs and/or images reviewed: Labs reviewed by me, Image(s) reviewed by me Assessment/Plan Assessment/Plan Impression: -acute hypoxic respiratory failure -probable early right upper lobe pneumonia, Gram-positive/Gram-negative etiology -COPD with exacerbation -obesity -dyslipidemia Plan: -O2 supplementation to keep saturation greater than 92% -start antibiotic therapy with Rocephin and azithromycin -continue IV Solu-Medrol -bronchodilators -repeat labs and chest x-ray in a.m. Total time spent with patient discussing and formulating plan of care: 35 minutes. This medical document was created using an electronic medical record system with [employer] dictation system. Although this document has been carefully reviewed, there may still be some phonetic and typographical errors. These areas are purely typographical due to imperfections of the software programs, and do not reflect any compromise in the patient's medical care. Plan discussed with: Patient, Other (RN) My Orders Orders - ANASTASIYA REICH NP Procedure Category Date Status Time Ceftriaxone Ivpb PHA 06/28/24 Verified Rocephin 13:15 Azithromycin Tablet PHA 06/28/24 Verified (Zithromax Tablet) 13:15 Date of Service: June 28, 2024 Billing Provider: ANASTASIYA REICH NP Common Visit Codes: [id number] INP/OBS CARE(HIGH) ANASTASIYA REICH NP June 28, 2024 13:18
[2024-06-28] MEDS: cefTRIAXone 1GM/50ML D5W 50 ML IV SCH (13:42)
[2024-06-28] MEDS: AZITHROMYCIN 250 MG TAB PO SCH (13:42)
[2024-06-29] VITALS (13 sets, daily range): BP systolic 98–143; BP diastolic 59–89; PULSE 56–88; RESP 16–20; TEMP 97.4–97.9; O2SAT 5–100
[2024-06-29 06:40] LABS: Basophils # (auto) 0 10 ^3/uL (0-0.2); Basophils % (auto) 0.1 % (0.0-2.0); Eosinophils # (auto) 0 10 ^3/uL (0-0.8); Hematocrit 42.3 % (41.0-53.0); Hemoglobin 14.7 g/dL (13.5-17.5); Lymphocytes # (auto) 1.2 10 ^3/uL (0.4-5.4); Lymphocytes % (auto) 9.4 % (10.0-50.0); Mean Corpuscular Hemoglobin 31.3 pg (28.0-32.0); Mean Corpuscular Hgb Conc. 34.8 g/dL (32.0-36.0); Mean Corpuscular Volume 89.8 fL (80.0-100.0); Monocytes # (auto) 0.3 10 ^3/uL (0-1.3); Monocytes % (auto) 2.4 % (0.0-12.0); Neutrophils # (auto) 11.5 10 ^3/uL (1.6-8.6); Neutrophils % (auto) 88.1 % (37.0-80.0); Nucleated Red Blood Cells % 0.1 %; Platelet Count (auto) 228 10^3/uL (140-450); Red Blood Cells 4.71 10^6/uL (4.5-5.90); Red Cell Distribution Width 14.1 % (11.8-14.3)
[2024-06-29 06:50] LABS: Anion Gap 10 (5-15); Carbon Dioxide 25 mmol/L (20-31); Chloride 102 mmol/L (98-107); Potassium 4.3 mmol/L (3.5-5.1); Sodium 137 mmol/L (136-145)
[2024-06-29 06:52] LABS: Calcium 9.7 mg/dL (8.7-10.4)
[2024-06-29 06:57] LABS: BUN/Creatinine Ratio 17.6 (10.0-20.0); Blood Urea Nitrogen 13 mg/dL (9-23)
[2024-06-29 06:58] LABS: Glucose 261 mg/dL (74-106)
--- NOTE | 2024-06-29 07:25 | DVH ---
EXAM: XR Chest, 1 View CLINICAL INDICATION: RUL pna TECHNIQUE: Frontal view of the chest. COMPARISON: XY CHEST XRAY 1 VIEW on DOS: 06/27/24, XY CHEST PORTABLE on DOS: 06/17/24, XY CHEST PORTAB LE on DOS: 06/07/24, XY CHEST PORTABLE on DOS: 05/13/24, XY CHEST XRAY 1 VIEW on DOS: 05/12/24 FINDINGS: LUNGS AND PLEURAL SPACES: Unremarkable. No consolidation. No pneumothorax. HEART: Cardiomegaly without overt failure. MEDIASTINUM: Unremarkable. Normal mediastinal contour. BONES/JOINTS: Unremarkable. No acute fracture. OTHER FINDINGS: . . . IMPRESSION: Cardiomegaly without overt failure.
--- NOTE | 2024-06-29 09:00 | DVHPN2 ---
Subjective Patient reports having some chest pressure and shortness of breaths today. Reviewed: Care Plan, H&P, Labs, Medications Changes from previous H/P or p: Changes General: Per HPI Objective Vitals Vital Signs Date Time Temp Pulse Resp B/P (MAP) Pulse Ox O2 Delivery O2 Flow Rate FiO2 06/29/24 06:27 94 Room Air* 0 21 06/29/24 05:00 97.6 77 18 112/67 (82) 97.6 Intake/Output Intake and Output 06/29/24 07:00 Intake Total 2570 ml Output Total 1000 ml Balance 1570 ml Intake Oral 2520 ml IV Total 50 ml Output Urine Total 1000 ml # Voids 11 General Appearance: Alert, Oriented X3, Cooperative, No acute distress HEENT: Atraumatic, PERRLA Lungs: Clear to auscultation, Normal air movement Cardiovascular: Normal S1, Normal S2 Musculoskeletal: Normal sensory function, Normal motor function Extremities: No clubbing, No cyanosis Neuro: Normal gait, Normal speech, Strength at 5/ X4 ext Skin: Dry, Intact Psych/Mental Status: Mental status NL, Mood NL Medications Current Medications Medications Dose Ordered Sig/Martinez Route Start Time Stop Time Status Last Admin Dose Admin Albuterol 2.5 mg Q6HPRN PRN NEB 06/27/24 23:30 06/28/24 03:01 2.5 MG Ipratropium [place] 0.5 mg Q6HPRN PRN NEB 06/27/24 23:30 06/28/24 03:01 0.5 MG Methylprednisolone Sodium Succinate 40 mg BID IV 06/28/24 10:00 06/28/24 21:12 40 MG Acetaminophen/ Hydrocodone Bitart 1 tab Q4HP PRN PO 06/27/24 23:30 Ondansetron HCl 4 mg Q4HP PRN IV 06/27/24 23:30 Enoxaparin Sodium 40 mg DAILY SC 06/28/24 10:00 Acetaminophen 650 mg Q6HP PRN PO 06/27/24 23:30 Guaifenesin/ Codeine Phosphate 5 ml Q4HPRN PRN PO 06/28/24 00:15 Ceftriaxone Sodium 50 ml @ 100 mls/hr DAILY@09 IV 06/28/24 13:15 06/29/24 08:44 100 MLS/HR Azithromycin 500 mg DAILY PO 06/28/24 13:15 06/28/24 13:42 500 MG Budesonide 0.5 mg BID NEB 06/29/24 10:00 UNV Laboratory Results Laboratory Tests 06/29/24 05:29 Chemistry Test 06/29/24 05:29 Calcium Level 9.7 mg/dL (8.7-10.4) Labs and/or images reviewed: Labs reviewed by me, Image(s) reviewed by me Assessment/Plan Assessment/Plan Impression: -acute hypoxic respiratory failure -probable early right upper lobe pneumonia, Gram-positive/Gram-negative etiology -COPD with exacerbation -obesity -dyslipidemia Plan: Events: Patient with new onset of dyspnea, inspiratory and expiratory wheezing that is audible. -IV magnesium -add Pulmicort to bronchodilator treatments -O2 supplementation to keep saturation greater than 92% -start antibiotic therapy with Rocephin and azithromycin -continue IV Solu-Medrol -bronchodilators -Repeat chest x-ray without any noted infiltrates, opacities. Total time spent with patient discussing and formulating plan of care: 35 minutes. This medical document was created using an electronic medical record system with [employer] dictation system. Although this document has been carefully reviewed, there may still be some phonetic and typographical errors. These areas are purely typographical due to imperfections of the software programs, and do not reflect any compromise in the patient's medical care. Plan discussed with: Patient, Other (RN) My Orders Orders - ANASTASIYA REICH NP Procedure Category Date Status Time Ceftriaxone 1gm/50ml PHA 06/28/24 In Process D5w (Rocephin) 13:15 Azithromycin Tablet PHA 06/28/24 In Process (Zithromax Tablet) 13:15 Chest Portable XY 06/29/24 Resulted 04:00 Budesonide PHA 06/29/24 Logged (Inhalation) 10:00 Date of Service: June 29, 2024 Billing Provider: ANASTASIYA REICH NP Common Visit Codes: [id number] INP/OBS CARE(HIGH) ANASTASIYA REICH NP June 29, 2024 09:00
[2024-06-29] MEDS: MAGNESIUM SULFATE 1GM/100ML 100 ML IV ONE (09:40)
[2024-06-29] MEDS: BUDESONIDE (INHALATION) 0.5 MG/2 ML NEB NEB SCH (09:43)
[2024-06-30] VITALS (10 sets, daily range): BP systolic 95–133; BP diastolic 52–102; PULSE 59–85; RESP 16–18; TEMP 97.7–98.8; O2SAT 95–100
--- NOTE | 2024-06-30 10:40 | DVHPN2 ---
Subjective Patient reports having some chest pressure and shortness of breaths today. Reviewed: Care Plan, H&P, Labs, Medications Changes from previous H/P or p: No Changes General: Per HPI Objective Vitals Vital Signs Date Time Temp Pulse Resp B/P (MAP) Pulse Ox O2 Delivery O2 Flow Rate FiO2 06/30/24 08:49 97.7 68 18 133/67 (89) 98 97.7 06/29/24 20:22 Room Air* 0 21 Intake/Output Intake and Output 06/30/24 07:00 Intake Total 2550 ml Balance 2550 ml Intake Oral 2400 ml IV Total 150 ml # Voids 8 General Appearance: Alert, Oriented X3, Cooperative, No acute distress HEENT: Atraumatic, PERRLA Lungs: Clear to auscultation, Normal air movement Cardiovascular: Normal S1, Normal S2 Musculoskeletal: Normal sensory function, Normal motor function Extremities: No clubbing, No cyanosis Neuro: Normal gait, Normal speech, Strength at 5/5 X4 ext Skin: Dry, Intact Psych/Mental Status: Mental status NL, Mood NL Medications Current Medications Medications Dose Ordered Sig/Martinez Route Start Time Stop Time Status Last Admin Dose Admin Albuterol 2.5 mg Q6HPRN PRN NEB 06/27/24 23:30 06/29/24 09:04 2.5 MG Ipratropium [place] 0.5 mg Q6HPRN PRN NEB 06/27/24 23:30 06/29/24 09:04 0.5 MG Methylprednisolone Sodium Succinate 40 mg BID IV 06/28/24 10:00 06/30/24 09:28 40 MG Acetaminophen/ Hydrocodone Bitart 1 tab Q4HP PRN PO 06/27/24 23:30 Ondansetron HCl 4 mg Q4HP PRN IV 06/27/24 23:30 Enoxaparin Sodium 40 mg DAILY SC 06/28/24 10:00 Acetaminophen 650 mg Q6HP PRN PO 06/27/24 23:30 Guaifenesin/ Codeine Phosphate 5 ml Q4HPRN PRN PO 06/28/24 00:15 Ceftriaxone Sodium 50 ml @ 100 mls/hr DAILY@09 IV 06/28/24 13:15 06/30/24 08:30 100 MLS/HR Azithromycin 500 mg DAILY PO 06/28/24 13:15 06/30/24 09:27 500 MG Budesonide 0.5 mg BID NEB 06/29/24 10:00 06/29/24 20:22 0.5 MG Laboratory Results Laboratory Tests 06/29/24 05:29 Labs and/or images reviewed: Labs reviewed by me, Image(s) reviewed by me Assessment/Plan Assessment/Plan Impression: -acute hypoxic respiratory failure -probable early right upper lobe pneumonia, Gram-positive/Gram-negative etiology -COPD with exacerbation -obesity -dyslipidemia Plan: Events: Patient continues to have wheezing, improved from yesterday. Subjectively has some chest pressure. -add antihistamine -O2 supplementation to keep saturation greater than 92% -start antibiotic therapy with Rocephin and azithromycin -continue IV Solu-Medrol -bronchodilators, q.6 hours. Add Mucomyst. -Repeat chest x-ray without any noted infiltrates, opacities. Total time spent with patient discussing and formulating plan of care: 35 minutes. This medical document was created using an electronic medical record system with [employer] dictation system. Although this document has been carefully reviewed, there may still be some phonetic and typographical errors. These areas are purely typographical due to imperfections of the software programs, and do not reflect any compromise in the patient's medical care. Plan discussed with: Patient, Other (RN) Date of Service: June 30, 2024 Billing Provider: ANASTASIYA REICH NP Common Visit Codes: [id number] INP/OBS CARE(HIGH) ANASTASIYA REICH NP June 30, 2024 10:40
[2024-06-30] MEDS: LORATADINE 10 MG TAB PO SCH (10:51)
[2024-06-30] MEDS: ALBUTEROL SULF 2.5 MG/0.5ML(0.5%) NEB SOLN NEB SCH ×2 (11:43→18:27)
[2024-06-30] MEDS: IPRATROPIUM BROM 0.5 MG/2.5ML INH SOL NEB SCH ×2 (11:43→18:27)
[2024-06-30] MEDS: ACETYLCYSTEINE 10 %(100MG/ML) SOL 4ML NEB SCH (11:44)
[2024-07-01] VITALS (8 sets, daily range): BP systolic 113–120; BP diastolic 56–75; PULSE 70–88; RESP 16–18; TEMP 97.9–98.4; O2SAT 93–99
--- NOTE | 2024-07-01 06:38 | DVH ---
EXAM: XR Chest, 1 View CLINICAL INDICATION: pna TECHNIQUE: Frontal view of the chest. COMPARISON: XY CHEST PORTABLE on DOS: 06/29/24, XY CHEST XRAY 1 VIEW on DOS: 06/27/24, XY CHEST PORTABL E on DOS: 06/17/24, XY CHEST PORTABLE on DOS: 06/07/24, XY CHEST PORTABLE on DOS: 05/13/24 FINDINGS: LUNGS AND PLEURAL SPACES: Unremarkable. No consolidation. No pneumothorax. HEART: Unremarkable. No cardiomegaly. MEDIASTINUM: Unremarkable. Normal mediastinal contour. BONES/JOINTS: Unremarkable. No acute fracture. OTHER FINDINGS: . IMPRESSION: No acute cardiopulmonary process.
[2024-07-01] MEDS ORDERED: PRED20TA2 PO (10:29)
[2024-07-01] MEDS ORDERED: LORA-622 PO (10:29)
--- NOTE | 2024-07-01 10:34 | DVHDS2 ---
Discharge Summary Date of Admission June 27, 2024 at 23:28 Date of Discharge: July 01, 2024 Admitting Diagnosis Acute on chronic respiratory failure Labs/Diagnostic Data: Laboratory Results Test 06/29/24 05:29 06/27/24 22:26 06/27/24 21:43 White Blood Count 13.0 10^3/uL (4.4-10.8) Red Blood Count 4.71 10^6/uL (4.5-5.90) Hemoglobin 14.7 g/dL (13.5-17.5) Hematocrit 42.3 % (41.0-53.0) Mean Corpuscular Volume 89.8 fL (80.0-100.0) Mean Corpuscular Hemoglobin 31.3 pg (28.0-32.0) Mean Corpuscular Hemoglobin Concent 34.8 g/dL (32.0-36.0) Red Cell Distribution Width 14.1 % (11.8-14.3) Platelet Count 228 10^3/uL (140-450) Mean Platelet Volume 7.9 fL (6.9-10.8) Neutrophils (%) (Auto) 88.1 % (37.0-80.0) Lymphocytes (%) (Auto) 9.4 % (10.0-50.0) Monocytes (%) (Auto) 2.4 % (0.0-12.0) Eosinophils (%) (Auto) 0.0 % (0.0-7.0) Basophils (%) (Auto) 0.1 % (0.0-2.0) Neutrophils # (Auto) 11.5 10 ^3/uL (1.6-8.6) Lymphocytes # (Auto) 1.2 10 ^3/uL (0.4-5.4) Monocytes # (Auto) 0.3 10 ^3/uL (0-1.3) Eosinophils # (Auto) 0 10 ^3/uL (0-0.8) Basophils # (Auto) 0 10 ^3/uL (0-0.2) Nucleated Red Blood Cells 0.1 % Sodium Level 137 mmol/L (136-145) Potassium Level 4.3 mmol/L (3.5-5.1) Chloride Level 102 mmol/L (98-107) Carbon Dioxide Level 25 mmol/L (20-31) Anion Gap 10 (5-15) Blood Urea Nitrogen 13 mg/dL (9-23) Creatinine 0.74 mg/dL (0.700-1.30) Glomerular Filtration Rate Calc 99 mL/min (>90) BUN/Creatinine Ratio 17.6 (10.0-20.0) Serum Glucose 261 mg/dL (74-106) Calcium Level 9.7 mg/dL (8.7-10.4) Influenza Type A Antigen Negative (Negative) Influenza Type B Antigen Negative (Negative) SARS-CoV-2 Antigen (Rapid) Negative (NEGATIVE) D-Dimer, Quantitative 1.06 mg/L FEU (0.0-0.49) Total Bilirubin 0.6 mg/dL (0.2-1.0) Aspartate Amino Transferase (AST) 12 U/L (13-40) Alanine Aminotransferase (ALT) 15 U/L (7-40) Alkaline Phosphatase 104 U/L (46-116) Troponin I High Sensitivity 8 ng/L (</=54) B-Type Natriuretic Peptide 28.48 pg/mL (0-100) Total Protein 7.2 g/dL (5.7-8.2) Albumin 4.3 g/dL (3.2-4.8) Other Laboratory Tests 06/29/24 05:29 Brief Hx & Hospital Course: History of Present Illness 69-year-old male presents for evaluation of shortness for breath. Patient endorses a one day history of worsening shortness for breath with associated nonproductive cough, headache and wheeze. Patient reports using his inhaler and nebulizer at home without relief of the symptoms. Denies chest pain or palpitations. No other acute complaints reported. Course of hospitalization: Patient was started on IV antibiotic therapy, bronchodilators, mucolytics, antihistamines, as well as IV steroids. Patient's wheezing has resolved. Patient has been weaned off of oxygen. Chest x-ray reveals no acute pathology. Patient will now be discharged home and follow up with his PCP in 1-2 weeks. Medication reconciliation was performed, for which patient is to continue all home medications. Patient will also be provided prednisone 20 mg p.o. daily x7 days, as well as loratadine 10 mg p.o. daily. Patient was agreeable with discharge plan. All questions answered. Physical examination General: Alert and Oriented x3. No acute distress. Well-nourished. Eyes: EOMI. Anicteric. HENT: Moist mucous membranes. Lungs: Clear to auscultation bilaterally. No accessory muscle use. Cardiovascular: Regular rate and rhythm. No murmur. No JVD. Abdomen: Soft, non-tender and non-distended. No palpable masses. Extremities: No edema. Non-tender. Skin: No rashes or lesions. Warm. Neurologic: No focal neurological deficits. CN II-XII grossly intact, but not individually tested. Psychiatric: Cooperative. Appropriate mood and affect. Total time spent with patient discussing and formulating plan of care: 35 minutes. This medical document was created using an electronic medical record system with [employer] dictation system. Although this document has been carefully reviewed, there may still be some phonetic and typographical errors. These areas are purely typographical due to imperfections of the software programs, and do not reflect any compromise in the patient's medical care. Condition at Discharge: Fair Final Diagnosis/Problems List Acute Respiratory Failure Secondary diagnosis: -acute hypoxic respiratory failure -probable early right upper lobe pneumonia, Gram-positive/Gram-negative etiology -COPD with exacerbation -obesity -dyslipidemia -history of nicotine dependence Discharge Disposition: Home Discharge Instruct/Medications Diet: Consistent carbohydrate, Cardiac 2g Na,low cholest Activity: No Restrictions, As Tolerated Follow Up/Referral: Follow up up with Dr. Castro in 1-2 weeks Medications: Continue all home medications Loratadine 10 mg p.o. daily Prednisone 20 mg p.o. daily x7 days 36 Discharge Statement: "Patient was advised to return to the ER or call 911 if any headaches, dizziness, shortness of breath, chest pain, abdominal pain, bleeding, fevers, or worsening of medical condition. Patient was counseled about treatment plan, medications, possible side effects, patientverbalized understanding. All questions were answered to the best of my ability. This discharge took greater then 30 minutes in planning, reviewing documentation, counseling the patient, and discussing with other team members." ASSESSMENT ASSESSMENT Assessment Acute Respiratory Failure Date of Service: July 01, 2024 Billing Provider: ANASTASIYA REICH NP Common Visit Codes: 06083-ITX/OBS DISCH DAY >30min ANASTASIYA REICH NP July 01, 2024 10:34
== END 2024-07-01 14:15 | disposition home or self-care (01) | DRG 177 ==
LOC: EDBD 21:07 → ER 21:07 → EDUNIT# 21:07 → OVERFLOW 23:28 → CENTRAL 06-28 18:37
PROVIDERS: ADMIT Nurse Practitioner Acute Care; ATTEND Nurse Practitioner Acute Care
DX: J15.69 Pneumonia due to other Gram-negative bacteria (principal); J96.21 Acute and chronic respiratory failure with hypoxia; J44.0 Chronic obstructive pulmonary disease with (acute) lower respiratory infection; J45.901 Unspecified asthma with (acute) exacerbation; D72.828 Other elevated white blood cell count; J15.9 Unspecified bacterial pneumonia; E78.5 Hyperlipidemia, unspecified; E66.9 Obesity, unspecified; T38.0X5A Adverse effect of glucocorticoids and synthetic analogues, initial encounter; Z87.891 Personal history of nicotine dependence; Z79.2 Long term (current) use of antibiotics; Z68.34 Body mass index [BMI] 34.0-34.9, adult; Z79.899 Other long term (current) drug therapy
CPT/HCPCS: 36415; 71045; 71275; 80048; 80053; 83880; 84484; 85025; 85379; 87426; 87804; 93005; 94640; 96372; G0378; J1100; J2405

== ENCOUNTER 2024-07-30 08:20 | Outpatient (CLI) | payer OTHER, MEDICAID ==
[~2024-07-30 08:20] MED LIST changes: +LORA-622 PO; +PRED20TA2 PO; +UMEC1AER
[2024-07-30 08:49] LABS: Basophils # (auto) 0.1 10 ^3/uL (0-0.2); Basophils % (auto) 0.7 % (0.0-2.0); Eosinophils # (auto) 0.3 10 ^3/uL (0-0.8); Eosinophils % (auto) 3.5 % (0.0-7.0); Hematocrit 44.8 % (41.0-53.0); Hemoglobin 15.5 g/dL (13.5-17.5); Lymphocytes # (auto) 3.1 10 ^3/uL (0.4-5.4); Lymphocytes % (auto) 35.6 % (10.0-50.0); Mean Corpuscular Hemoglobin 30.4 pg (28.0-32.0); Mean Corpuscular Hgb Conc. 34.5 g/dL (32.0-36.0); Monocytes # (auto) 0.7 10 ^3/uL (0-1.3); Monocytes % (auto) 7.8 % (0.0-12.0); Neutrophils # (auto) 4.6 10 ^3/uL (1.6-8.6); Neutrophils % (auto) 52.4 % (37.0-80.0); Nucleated Red Blood Cells % 0.1 %; Platelet Count (auto) 261 10^3/uL (140-450); Red Blood Cells 5.09 10^6/uL (4.5-5.90); Red Cell Distribution Width 14.4 % (11.8-14.3); White Blood Cell 8.7 10^3/uL (4.4-10.8)
[2024-07-30 09:06] LABS: Urine Bacteria FEW /hpf (None Seen); Urine Blood 2+ /uL (Negative); Urine Clarity Clear (Clear); Urine Color Yellow (Yellow); Urine Mucus FEW (None Seen); Urine Protein, UAD TRACE (Negative); Urine Specific Gravity 1.031 (1.001-1.035); Urine Sperm PRESENT /hpf (None Seen); Urine Squamous Epithelial Cell FEW /hpf (<5); Urine Urobilinogen 4 mg/dL (Negative); Urine WBC 4 /HPF (0-3)
[2024-07-30 09:10] LABS: Alanine Aminotransferase 26 U/L (7-40); Albumin 4.3 g/dL (3.2-4.8); Alkaline Phosphatase 92 U/L (46-116); Anion Gap 9 (5-15); Aspartate Aminotransferase 20 U/L (13-40); BUN/Creatinine Ratio 18.3 (10.0-20.0); Bilirubin, Total 0.9 mg/dL (0.2-1.0); Blood Urea Nitrogen 13 mg/dL (9-23); Carbon Dioxide 26 mmol/L (20-31); Chloride 108 mmol/L (98-107); Cholesterol 224 mg/dL (< 200); Glucose 156 mg/dL (74-106); HDL Cholesterol 54 mg/dL (40-59); LDL Cholesterol 152 mg/dL (< 100); Potassium 3.5 mmol/L (3.5-5.1); Sodium 143 mmol/L (136-145); Total Protein 6.8 g/dL (5.7-8.2); Triglycerides 111 mg/dL (< 150)
== END 2024-07-30 17:00 | disposition home or self-care (01) ==
LOC: LAB 08:20
PROVIDERS: ATTEND Internal Medicine
DX: E11.22 Type 2 diabetes mellitus with diabetic chronic kidney disease (principal); N18.9 Chronic kidney disease, unspecified; Z79.899 Other long term (current) drug therapy
CPT/HCPCS: 36415; 80053; 80061; 81001; 82043; 82274; 82306; 83036; 84443; 85025

== ENCOUNTER 2024-08-03 14:32 | Outpatient (CLI) | payer OTHER, MEDICAID | END 2024-08-03 17:00 | disposition home or self-care (01) | LOC: LAB 14:32 | PROVIDERS: ATTEND Internal Medicine | DX: R30.0 Dysuria (principal); N20.0 Calculus of kidney | CPT/HCPCS: 87086 ==

== ENCOUNTER 2024-10-29 06:03 | Outpatient (CLI) | payer OTHER, MEDICAID ==
[2024-10-29 07:08] LABS: Urine Protein, UAD Negative (Negative)
[2024-10-29 07:12] LABS: Hematocrit 46.4 % (41.0-53.0); Hemoglobin 16.0 g/dL (13.5-17.5); Mean Corpuscular Hemoglobin 30.7 pg (28.0-32.0); Mean Corpuscular Volume 89.0 fL (80.0-100.0); Nucleated Red Blood Cells % 0.1 %
[2024-10-29 07:47] LABS: Prostate Specific Antigen 0.66 ng/mL (0.0-4.0)
[2024-10-29 07:49] LABS: Alanine Aminotransferase 14 U/L (7-40); Albumin 4.1 g/dL (3.2-4.8); Alkaline Phosphatase 88 U/L (46-116); Anion Gap 10 (5-15); BUN/Creatinine Ratio 8.7 (10.0-20.0); Bilirubin, Total 1.0 mg/dL (0.2-1.0); Carbon Dioxide 25 mmol/L (20-31); HDL Cholesterol 44 mg/dL (40-59); Potassium 3.8 mmol/L (3.5-5.1); Sodium 143 mmol/L (136-145); Total Protein 6.8 g/dL (5.7-8.2); Triglycerides 104 mg/dL (< 150)
[2024-10-29 07:52] LABS: Free T4 (Free Thyroxine) 1.02 ng/dL (0.89-1.76)
[2024-10-29 07:57] LABS: Blood Urea Nitrogen 6 mg/dL (9-23); Calcium 8.7 mg/dL (8.7-10.4); Chloride 108 mmol/L (98-107); Cholesterol 203 mg/dL (< 200); Glucose 125 mg/dL (74-106)
[2024-10-30 12:07] LABS: Chlamydia Trachomatis, NAA Negative (Negative); Neisseria gonorrhoeae, NAA Negative (Negative)
== END 2024-10-29 17:00 | disposition home or self-care (01) ==
LOC: LAB 06:03
PROVIDERS: ATTEND Internal Medicine
DX: J44.9 Chronic obstructive pulmonary disease, unspecified (principal); K59.00 Constipation, unspecified; Z00.01 Encounter for general adult medical examination with abnormal findings; Z11.59 Encounter for screening for other viral diseases; Z79.899 Other long term (current) drug therapy
CPT/HCPCS: 36415; 80053; 80061; 81001; 83036; 84153; 84439; 84443; 85025; 86703; 86735; 86762; 86765; 86780; 86787

== ENCOUNTER → 2024-10-29 | Outpatient (CLI) | payer OTHER, MEDICAID | END | disposition home or self-care (01) | LOC: LAB 15:00 | PROVIDERS: ATTEND Internal Medicine | DX: J44.9 Chronic obstructive pulmonary disease, unspecified (principal); K59.00 Constipation, unspecified; Z11.59 Encounter for screening for other viral diseases; Z00.01 Encounter for general adult medical examination with abnormal findings | CPT/HCPCS: 82274 ==

== ENCOUNTER → 2024-12-07 | Outpatient (CLI) | payer OTHER, MEDICAID ==
[~2024-12-07] MED LIST changes: +ALBUTEROL SULF 2.5 MG/0.5ML(0.5%) NEB SOLN ONE
--- NOTE | 2024-12-08 15:10 | DVHNC2 ---
Procedure - Date of service:12/07/2024 Pulmonary function test interpretation: Moderately severe obstructive ventilatory defect. Significant bronchodilator response. FVC improved by 100 mL. FEV1 improved by 240 mL. Patient was unable to do nitrogen washout technique for lung volumes despite prompting and coaching. Diffusion capacity is within normal limits, 104% of predicted. Procedure Codes: CPT 35887-87 CPT 62762-82 CPT 69068-53 Visit Coding Pulmonary Billing Provider: REMY TOSCANO MD Date of Service if different f: Dec 07, 2024 Common Visit Codes: PROCEDURE ONLY Pulmonary Procedure Codes: 29263-96- SPIROMETRY, 31075-05- LUNG VOLUME, 06006-79- DIFFUSION CAPACITY REMY TOSCANO MD Dec 08, 2024 15:10
--- NOTE | 2024-12-08 15:13 | DVHNC2 ---
Procedure - Date of Service: 12/07/2024 6 Minutes walk test interpretation: Completed 6 minutes of ambulation. Mild reduction in distance walked. Expected heart rate achieved. No significant desaturation with exertion. Procedure Code: CPT 27436-59 Visit Coding Pulmonary Billing Provider: REMY TOSCANO MD Date of Service if different f: Dec 07, 2024 Common Visit Codes: PROCEDURE ONLY Pulmonary Procedure Codes: 56490-58- PULMONARY STRESS TESTING REMY TOSCANO MD Dec 08, 2024 15:13
== END | disposition home or self-care (01) ==
LOC: RT 10:52
PROVIDERS: ATTEND Internal Medicine Pulmonary Disease
CPT/HCPCS: 94060; 94618; 94729

== ENCOUNTER 2024-12-27 06:45 | Outpatient (CLI) | payer OTHER, MEDICAID ==
[~2024-12-27 06:45] MED LIST changes: -ALBUTEROL SULF 2.5 MG/0.5ML(0.5%) NEB SOLN ONE
[2024-12-27 07:44] LABS: Anion Gap 9 (5-15); Carbon Dioxide 28 mmol/L (20-31); Chloride 105 mmol/L (98-107); Potassium 4.2 mmol/L (3.5-5.1); Sodium 142 mmol/L (136-145)
[2024-12-27 07:45] LABS: Calcium 9.2 mg/dL (8.7-10.4)
[2024-12-27 07:50] LABS: BUN/Creatinine Ratio 12.3 (10.0-20.0); Blood Urea Nitrogen 10 mg/dL (9-23); Glucose 121 mg/dL (74-106)
== END 2024-12-27 17:00 | disposition home or self-care (01) ==
LOC: LAB 06:45
PROVIDERS: ATTEND Internal Medicine
DX: I10 Essential (primary) hypertension (principal); E11.69 Type 2 diabetes mellitus with other specified complication
CPT/HCPCS: 36415; 80048